=== PATIENT | female | born 1955 | race Hispanic/Latino ===

== ENCOUNTER 2019-08-28 13:11 | Inpatient (IN) | payer OTHER ==
--- OUTSIDE RECORDS SUMMARY | 2019-08-28 13:49 | XMS REPORT ---
:1955 [facility] Address [address] [place] [address] Care Team Providers Name Role Phone Unavailable Unavailable Unavailable Problems This patient has no known problems. Allergies, Adverse Reactions, Alerts This patient has no known allergies or adverse reactions. Medications This patient has no known medications.
--- OUTSIDE RECORDS SUMMARY | 2019-08-28 13:50 | XMS REPORT ---
:1955 Author Organization [employer] Care Team Providers Name Role Phone Cruz Rik Provider Role Unavailable Allergies, Adverse Reactions, Alerts Substance Reaction Event Type N.K.D.A. Info Not Available Non Drug Allergy Problems Problem Type Condition Code Onset Dates Condition Status Assessment PAD (peripheral artery disease) I73.9 Active Assessment HTN, goal below 130/80 I10 Active Assessment Mixed hyperlipidemia E78.2 Active Assessment Former heavy tobacco smoker Z87.891 Active Assessment Elevated uric acid in blood E79.0 Active Assessment Type 2 diabetes mellitus 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 Assessment Proteinuria, unspecified R80.9 Active Problem Type 2 diabetes mellitus with E11.51 Active diabetic peripheral angiopathy without gangrene, without long-term current use of insulin Problem HTN, goal below 130/80 I10 Active Problem Type 2 diabetes mellitus 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 Assessment Type 2 diabetes mellitus with E11.51 Active diabetic peripheral angiopathy without gangrene, without long-term current use of insulin Problem PAD (peripheral artery disease) I73.9 Active Problem Mixed hyperlipidemia E78.2 Active Medications Medication Code Code Instructions Start End Status Dosage System Date Date Lisinopril [facility] 90045946432 5 MG Orally Active 1 tablet Once a day Aspir-Low [facility] 20490536525 81 MG Orally Active 1 tablet Once a day Fenoprofen [facility] 87998900381 200 MG Orally Active 2 capsules Calcium Three times a day Glyxambi [facility] 97732184859 10-5 MG Inactive TAKE 1 TABLET BY MOUTH IN THE MORNING Metformin HCl ND 14349731039 1000 MG Orally Active 1 tablet BID with a meal Vasculera [facility] [address]-71 - Orally Active as directed Glyxambi [facility] 31059180770 25mg/5mg By Apr 09Jun Active 1 Mouth Once in 2018 26, AM 2019 Clopidogrel ND 60975777769 75 MG Orally Active 1 tablet Bisulfate Once a day Atorvastatin [facility] 44421923816 40 MG Orally Active 1 tablet Calcium Once a day Results No Known Results Summary Purpose [employer] Submission
--- OUTSIDE RECORDS SUMMARY | 2019-08-28 13:50 | XMS REPORT ---
:1955 Author Organization [employer] Care Team Providers Name Role Phone Rik Arroyo Provider Role Unavailable Allergies, Adverse Reactions, Alerts Substance Reaction Event Type N.K.D.A. Info Not Available Non Drug Allergy Problems Problem Type Condition Code Onset Dates Condition Status Assessment PAD (peripheral artery disease) I73.9 Active Assessment HTN, goal below 130/80 I10 Active Assessment Mixed hyperlipidemia E78.2 Active Problem Type 2 diabetes mellitus with [...] I73.9 Active Problem Mixed hyperlipidemia E78.2 Active Assessment Former heavy tobacco smoker Z87.891 Active Assessment Elevated uric acid in blood E79.0 Active Assessment Type 2 diabetes mellitus 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 Assessment Elevated alkaline phosphatase level R74.8 Active Assessment Proteinuria, unspecified R80.9 Active Medications Medication Code Code Instructions Start End Status Dosage System Date Date Metformin HCl [facility] 63389491524 1000 MG Orally Active 1 tablet BID with a meal Glyxambi [facility] 63596981951 25-5 MG Orally September Active TAKE 1 Once a day , TABLET BY 2019 MOUTH EVERY MORNING Aspir-Low ND 62493722456 81 MG Orally Active 1 tablet Once a day Vasculera [facility] [address]-36 - Orally Active as directed Atorvastatin ND 88456132500 40 MG Orally Active 1 tablet Calcium Once a day Lisinopril ND 58202680444 10 MG Orally Active 1 tablet Once a day Clopidogrel ND 83544577442 75 MG Orally Active 1 tablet Bisulfate Once a day Results No Known Results Summary Purpose [employer]ClinicalWorks Submission
--- OUTSIDE RECORDS SUMMARY | 2019-08-28 13:50 | XMS REPORT ---
:1955 Author Organization [employer] Care Team Providers Name Role Phone ArroyoRik Provider Role Unavailable Allergies, Adverse Reactions, Alerts Substance Reaction Event Type N.K.D.A. Info Not Available Non Drug Allergy Problems Problem Type Condition Code Onset Dates Condition Status Assessment Upper respiratory tract infection, J06.9 Active unspecified type Problem Type 2 diabetes mellitus with E11.51 Active diabetic peripheral angiopathy without gangrene, without long-term current use of insulin Problem HTN, goal below 130/80 I10 Active Problem Type 2 diabetes mellitus 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 Assessment Acute non-recurrent maxillary J01.00 Active sinusitis Problem PAD (peripheral artery disease) I73.9 Active Problem Mixed hyperlipidemia E78.2 Active Medications Medication Code Code Instructions Start End Status Dosage System Date Date Metformin HCl [facility] 84693408506 1000 MG Orally Active 1 tablet BID with a meal Aspir-Low [facility] 30247071371 81 MG Orally Active 1 tablet Once a day Amoxicillin-Pot [facility] 33439876739 875-125 MG Apr 30, May 10, Active 1 tablet Clavulanate Orally every 12 2019 2019 hrs Atorvastatin ND 13649816418 40 MG Orally Active 1 tablet Calcium Once a day Fenoprofen [facility] 04433426287 200 MG Orally Active 2 capsules Calcium Three times a day Clopidogrel [facility] 19165953930 75 MG Orally Active 1 tablet Bisulfate Once a day Vasculera [facility] [address]-98 - Orally Active as directed Glyxambi [facility] 85043860411 25mg/5mg By Apr 09, Jul 08, Active 1 Mouth Once in 2018 2020 AM Lisinopril [facility] 19857573896 5 MG Orally Active 1 tablet Once a day Results No Known Results Summary Purpose eClinicalWorks Submission
[2019-08-28 14:34] VITALS: BMI 26.2
[2019-08-28] MEDS ORDERED: ONDANSETRON 4 MG/2 ML VIAL IV PRN (15:28)
[2019-08-28] MEDS ORDERED: ACETAMINOPHEN 500 MG TAB PO PRN (15:28)
[2019-08-28] MEDS ORDERED: VANCOMYCIN 1.75 GM in NA CHLORIDE 0.9% 500 ML IVPB ONE (16:00)
[2019-08-28 16:17] LABS: Absolute Lymphocytes (CBC) 1.4 K/uL (0.7-4.9); Hematocrit 36.7 % (36.0-45.0); Lymphocytes % 17.6 % (15.3-44.8); MPV 8.5 fL (7.6-11.3); RBC Red Blood Cell Count 4.32 M/uL (3.86-4.86)
[2019-08-28 16:18] LABS: Protime INR 0.9
--- NOTE | 2019-08-28 16:18 | P.HP ---
Certification for Inpatient Patient admitted to: Inpatient With expected LOS: >2 Midnights Practitioner: I am a practitioner with admitting privileges, knowledge of patient current condition, hospital course, and medical plan of care. Services: Services provided to patient in accordance with Admission requirements found in Title 42 Section 412.3 of the Code of Federal Regulations Patient History Date of Service: 08/28/19 Reason for admission: Infected left big toe ulcer History of Present Illness: 64-year-old woman with a history diabetes mellitus, peripheral vascular disease , diabetic foot ulcers was referred from her data communications software consultant-Dr. Johns's office to be directly admitted for treatment for infected diabetic foot ulcer of the left big toe and osteomyelitis. Patient stated she completed oral antibiotics for her left great toe wound with no significant response. She took an x-ray which is showing osteomyelitis. She recently underwent a vascular procedure which from her description suggests an angioplasty of the vessels in her left leg. She is on aspirin and Plavix for peripheral vascular disease. She took all her medications this morning. Her blood sugar levels today is 150. Allergies No Known Allergies Allergy (Verified 06/26/17 19:52) Home Medications: Collagenase [Santyl Ointment*] 1 appl TOP DAILY #1 tube 07/01/17 Aspirin [Aspirin EC 81 MG] 1 tab PO DAILY 08/28/19 Atorvastatin Calcium 40 mg PO BEDTIME 08/28/19 Clopidogrel Bisulfate [Plavix*] 1 tab PO DAILY 08/28/19 Empagliflozin/Linagliptin [Glyxambi 25 mg-5 mg Tablet] 1 tab PO DAILY 08/28/19 Lisinopril [Zestril] 10 mg PO DAILY 08/28/19 Metformin HCl [Glucophage*] 1,000 mg PO BIDWM 08/28/19 Sulfamethoxazole/Trimethoprim [Sulfamethoxazole-Tmp Ds Tablet] 1 tab PO BID - Past Medical/Surgical History Has patient received pneumonia vaccine in the past: Yes Diabetic: Yes -: HTN -: DM -: C section -: tubal ligation -: Right foot surgery-2016 - Family History Mother -: Cancer Sister -: Cancer Notes: RA Brother -: Liver disease Father -: Cancer - Social History Smoking Status: Former smoker Alcohol use: No CD- Drugs: No Caffeine use: Yes Place of Residence: Home Review of Systems Other: Except as documented, all other systems reviewed and negative. Physical Examination - Vital Signs Temperature: 96.8 F Blood Pressure: 124/65 Pulse: 80 Respirations: 16 Pulse Ox (%): 100 - Physical Exam General: Alert, In no apparent distress, Oriented x3 HEENT: Mucous membr. moist/pink, Sclerae nonicteric Neck: Supple, JVD not distended Respiratory: Clear to auscultation bilaterally, Normal air movement Cardiovascular: No edema, Regular rate/rhythm, Normal S1 S2, No murmurs Capillary refill: <2 Seconds Gastrointestinal: Normal bowel sounds, Soft and benign, No tenderness Musculoskeletal: Other (Left great toe is swollen, purplish, small ulcer noted on the medial aspect of the toe. Right plantar ulcer adjacent to the 1st interdigital space, with necrotic eschar.) Neurological: Normal speech, Normal strength at 5/5 x4 extr, Cranial nerves 3- 12 intact Assessment and Plan - Problems (Diagnosis) (1) Diabetic ulcer of left great toe Current Visit: Yes Status: Acute (2) Osteomyelitis Current Visit: Yes Status: Acute (3) Diabetes mellitus type 2 in obese Current Visit: Yes Status: Acute (4) Peripheral vascular disease Current Visit: Yes Status: Acute (5) Diabetic ulcer of right foot Current Visit: No Status: Acute - Plan Admit to the medical floor. Check CBC, BMP Obtain Blood culture Start IV Rocephin and vancomycin Consult to podiatry. Patient will need debridement of the right foot plantar ulcer. Will also recommend bone biopsy from the left great toe for culture, to identify specific bacteria causing the osteomyelitis to guide a 6 weeks course of antibiotics therapy. Place PICC line for prolonged antibiotic therapy. Manage blood sugar with insulin sliding scale and Lantus insulin. Hold metformin while inpatient. - Advance Directives Does patient have a Living Will: Yes Does patient have a Durable POA for Healthcare: No
[2019-08-28] MEDS ORDERED: GLUCAGON 1 MG/VIAL IM PRN (16:26)
[2019-08-28] MEDS ORDERED: D50W 25 GM/50 ML SYRINGE/VIAL IV PRN (16:26)
[2019-08-28] MEDS: INSULIN -REGULAR HUMAN 50 UNIT/0.5 ML ML SQ SCH ×2 (16:30→20:35)
[2019-08-28 16:35] LABS: Albumin 2.8 g/dL (3.4-5.0); Bilirubin Total 0.1 mg/dL (0.2-1.0); Magnesium 2.4 mg/dL (1.8-2.4); Phosphorus 3.9 mg/dL (2.5-4.9); Potassium 5.3 mmol/L (3.5-5.1); Protein, Total 7.3 g/dL (6.4-8.2)
[2019-08-28] MEDS: NA CHLORIDE 0.9% 1,000 ML IV SCH (17:11)
[2019-08-28] MEDS: CEFTRIAXONE/SWI 1gm 1 GM/10 ML SYR IVP SCH (17:12)
--- NOTE | 2019-08-28 18:52 | P.CNS ---
Date of Consult: 08/28/19 Reason for Consult: cellulitis and osteomyelitis left hallux Chief Complaint: Infected left big toe ulcer Allergies No Known Allergies Allergy (Verified 06/26/17 19:52) Home Medications: Collagenase [Santyl Ointment*] 1 appl TOP DAILY #1 tube 07/01/17 Aspirin [Aspirin EC 81 MG] 1 tab PO DAILY 08/28/19 Atorvastatin Calcium 40 mg PO BEDTIME 08/28/19 Clopidogrel Bisulfate [Plavix*] 1 tab PO DAILY 08/28/19 Empagliflozin/Linagliptin [Glyxambi 25 mg-5 mg Tablet] 1 tab PO DAILY 08/28/19 Lisinopril [Zestril] 10 mg PO DAILY 08/28/19 Metformin HCl [Glucophage*] 1,000 mg PO BIDWM 08/28/19 Sulfamethoxazole/Trimethoprim [Sulfamethoxazole-Tmp Ds Tablet] 1 tab PO BID - Past Medical/Surgical History Diabetic: Yes -: HTN -: DM -: C section -: tubal ligation -: Right foot surgery-2016 - Family History Mother Medical History: Cancer Sister Medical History: Cancer Notes: RA Brother Medical History: Liver disease Father Medical History: Cancer - Social History Smoking Status: Current every day smoker Alcohol use: No CD- Drugs: No Caffeine use: Yes Place of Residence: Home Review of Systems 10-point ROS is otherwise unremarkable Physical Examination Temp Pulse Resp BP Pulse Ox 96.8 F 80 16 124/65 100 08/28/19 16:25 08/28/19 16:25 08/28/19 16:25 08/28/19 16:25 08/28/19 16:25 General: Alert, In no apparent distress, Oriented x3 Cardiovascular: Normal pulses Capillary refill: <2 Seconds (1/4 dp/pt pulse left hallux) Musculoskeletal: No clubbing, No swelling, No contractures, No erythema, No tenderness, No warmth Integumentary: Diabetic ulcer (ulceration medial aspect of left hallux with large fibrin, no purulence that probes to bone. Erythema and edema to left hallux to level of 1st mpj, no ascending cellulitis noted.) Neurological: Abnormal sensation (absent proprioceptive and protective sensations bilateral feet) Laboratory Data (last 24 hrs) 08/28/19 16:00: Sodium 133 L, Potassium 5.3 H, BUN 31 H, Creatinine 1.36 H, Glucose 125 H, Phosphorus 3.9, Magnesium 2.4, Total Bilirubin 0.1 L, AST 13 L, ALT 16, Alkaline Phosphatase 147 H 08/28/19 16:00: PT 10.7, INR 0.90 08/28/19 16:00: WBC 7.8, Hgb 12.0, Hct 36.7, Plt Count 449 H - Problems (1) Diabetic ulcer of left great toe Current Visit: Yes Status: Acute (2) Osteomyelitis Current Visit: Yes Status: Acute Conclusions/Impression: I agree with a course of iv antibiotics to attempt to salvage the left hallux. Patient has recently had revascularization to the left lower extremity and is noted to have digital hair growth. I discussed with the patient that she is a candidate for hyperbarics to aid in treating the wound and osteomyelitis. I will write orders for wound care and follow as needed.
[2019-08-28 19:38] LABS: Urine Appearance CLEAR; Urine Bilirubin NEGATIVE (NEG); Urine Blood NEGATIVE (NEG); Urine Color YELLOW; Urine Glucose 3+ (NEG); Urine Protein 2+ (NEG); Urine Urobilinogen 0.2 mg/dL (0.2-1.0)
[2019-08-28 19:51] LABS: Urine Microscopic Reflex ORDER UMIC
[2019-08-28 20:13] LABS: Urine Bacteria <20 /HPF (<20); Urine Culture Reflex Order NOT NEEDED; Urine RBC <5 /HPF (NONE SEEN)
[2019-08-28 20:14] LABS: Urine Trichomonas PRESENT (NONE SEEN)
[2019-08-28] MEDS: INSULIN GLARGINE 100 UNITS/ML SQ SCH (20:33)
[2019-08-28] MEDS: ATORVASTATIN 40 MG TAB PO SCH (20:33)
[2019-08-29] MEDS: NA CHLORIDE 0.9% 1,000 ML IV SCH ×3 (01:28→17:29)
[2019-08-29] MEDS ORDERED: VANCOMYCIN 1.25 GM in NA CHLORIDE 0.9% 250 ML IVPB SCH (04:00)
[2019-08-29] MEDS: INSULIN -REGULAR HUMAN 50 UNIT/0.5 ML ML SQ SCH ×4 (07:30→21:54)
[2019-08-29] MEDS: lisinopriL 10 MG TAB PO SCH (07:51)
[2019-08-29] MEDS: CEFTRIAXONE/SWI 1gm 1 GM/10 ML SYR IVP SCH (07:51)
[2019-08-29] MEDS: COLLAGENASE 30 GM OINTMENT TOP SCH (07:56)
[2019-08-29] MEDS ORDERED: LINAGLIPTIN PO SCH (09:00)
[2019-08-29] MEDS ORDERED: EMPAGLIFLOZIN PO SCH (09:00)
--- NOTE | 2019-08-29 10:38 | RAD REPORT ---
EXAM DESCRIPTION: RAD - Foot Left 3 View - 08/29/2019 10:14 am CLINICAL HISTORY: left great toe osteomyelitis COMPARISON: No comparisons FINDINGS: Bone loss changes are present involving the distal medial aspect of the first proximal pha lanx and base first distal phalanx. Bone loss changes also present in the head of the second proximal phalanx and probably in the base of the second middle phalanx. No acute fracture changes present. Prominent degenerative change present at the first MTP joint. No a ir in the soft tissues. Soft tissue swelling is present around the first and second toes. No foreign body. 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
[2019-08-29] MEDS ORDERED: metroNIDAZOLE 500 MG TABLET PO ONE (14:04)
[2019-08-29 14:40] LABS: Potassium 5.5 mmol/L (3.5-5.1)
[2019-08-29] MEDS: CEFEPIME/SWI 2gm 2 GM/20 ML SYR IVP SCH ×2 (15:49→21:54)
--- NOTE | 2019-08-29 17:11 | PN ---
Date of Progress Note: 08/29/2019 Subjective: Patient is seen and examined. Chart reviewed. Case discussed with RN. Patient states she feels okay. Had a bedside debridement done today by Dr. Johns. Medications List: Reviewed. Physical Examination: Vital Signs: Temperature 97, heart rate 74, blood pressure 121/60, respirations 18, O2 of 98% on flynn m air. General: Awake, alert, oriented x3. Ill-appearing female, in some mild distress. CV: S1, S2. Regular rate and rhythm. Peripheral pulses present. Respiratory: Moving air well bilaterally. No wheezing or stridor. Gastrointestinal: Abdomen is soft, nontender, nondistended. Positive bowel sounds. Extremities: No clubbing, cyanosis, or edema, except at the left foot. Neurologic: Nonfocal. Skin: Left first digit erythema, swelling, warm to touch. Wound is present. Laboratory Data: Blood glucose levels ranging between 159 and 99. Urine did show trichomonas. We w ill treat patient. Blood cultures and wound cultures pending at this time. Wound cultures growing 4 + gram-negative rods. Imaging Studies: Foot x-ray shows bone destructive osteomyelitis involving the first proximal and di stal phalanges and the second proximal and middle phalanges. Assessment: A 64-year-old female with: 1.Osteomyelitis of the first and second digit, left foot. We will continue with IV antibiotics and follow up on cultures. Appreciate Dr. Johns's input. We will consult Infectious Disease. X-ray rev iewed. 2.Diabetic ulcer of the left great toe. Initial culture growing out gram-negative rods. 3.Diabetes mellitus type 2 with hyperglycemia, non-insulin requiring. We will continue with sliding scale insulin. Monitor blood glucose levels. 4.Peripheral vascular disease. 5.Diabetic ulcer, right foot plantar aspect. 6.Deep vein thrombosis prophylaxis, addressed. Plan: 1.Obtain PICC line. We will need 6 weeks of IV antibiotics. ID consultation. 2.Trichomoniasis. We will treat with Flagyl. Patient instructed to treat her partner as well. SA/MODL Voice ID: [id number] Report ID: [id number]
[2019-08-29] MEDS ORDERED: CEFEPIME 2 GM in NA CHLORIDE 0.9% 100 ML IV SCH (21:00)
[2019-08-29] MEDS ORDERED: metroNIDAZOLE 500 MG TABLET PO SCH (21:00)
[2019-08-29] MEDS: ATORVASTATIN 40 MG TAB PO SCH (21:55)
[2019-08-29] MEDS: INSULIN GLARGINE 100 UNITS/ML SQ SCH (21:55)
[2019-08-30] MEDS ORDERED: LIDOCAINE 1% MPF 5 ML VIAL ONE (00:55)
[2019-08-30 03:34] LABS: Absolute Lymphocytes (CBC) 1.7 K/uL (0.7-4.9); Basophils % 1.2 % (0-1.3); Hematocrit 32.2 % (36.0-45.0); Lymphocytes % 25.4 % (15.3-44.8); MPV 8.8 fL (7.6-11.3); RBC Red Blood Cell Count 3.76 M/uL (3.86-4.86)
[2019-08-30 03:39] LABS: Potassium 5.1 mmol/L (3.5-5.1)
[2019-08-30] MEDS ORDERED: VANCOMYCIN 1.25 GM in NA CHLORIDE 0.9% 250 ML IVPB SCH (04:00)
[2019-08-30] MEDS: NA CHLORIDE 0.9% 1,000 ML IV SCH ×4 (04:39→23:12)
[2019-08-30] MEDS: INSULIN -REGULAR HUMAN 50 UNIT/0.5 ML ML SQ SCH ×4 (07:30→22:26)
[2019-08-30] MEDS: lisinopriL 10 MG TAB PO SCH (07:42)
[2019-08-30] MEDS: COLLAGENASE 30 GM OINTMENT TOP SCH (07:42)
[2019-08-30] MEDS: CEFEPIME/SWI 2gm 2 GM/20 ML SYR IVP SCH ×2 (07:42→21:30)
--- NOTE | 2019-08-30 08:36 | P.PN ---
Subjective Date of Service: 08/30/19 Chief Complaint: Infected left big toe ulcer Subjective: Improving, Doing well Review of Systems 10-point ROS is otherwise unremarkable Physical Examination - Vital Signs Temperature: 96.8 F Blood Pressure: 144/70 Pulse: 82 Respirations: 16 Pulse Ox (%): 96 - Physical Exam General: Alert, In no apparent distress, Oriented x3 Cardiovascular: No edema, Normal pulses Capillary refill: <2 Seconds Musculoskeletal: No clubbing, No swelling, No contractures, No erythema, No tenderness, No warmth Integumentary: Diabetic ulcer (Wound medial aspect of left hallux has decreased fibrin, slight decrease in periwound erythema and edema, no purulence noted. Hyperkeratosis noted plantar right foot with no open wound or drainage) Neurological: Abnormal sensation - Studies Laboratory Data (last 24 hrs) 08/30/19 03:09: Sodium 139, Potassium 5.1, BUN 26 H, Creatinine 0.91, Glucose 138 H 08/30/19 03:09: WBC 6.8, Hgb 10.6 L, Hct 32.2 L, Plt Count 342 D 08/29/19 13:50: Sodium 135 L, Potassium 5.5 H, BUN 27 H, Creatinine 1.26, Glucose 132 H Microbiology Data (last 24 hrs): 08/28/19 15:20 Wound - Left Toe Gram Stain - Final Assessment And Plan - Current Problems (Diagnosis) (1) Diabetic ulcer of left great toe Current Visit: Yes Status: Acute (2) Osteomyelitis Current Visit: Yes Status: Acute Qualifiers: Osteomyelitis type: other acute Osteomyelitis location: foot Laterality: left Qualified Code(s): M86.172 - Other acute osteomyelitis, left ankle and foot - Plan Continue packing wound bid with saline moistened gauze. Will d/c patient home on current iv antibiotics and tailor the antibiotics when bone culture is finalized. Patient to follow up in wound care 09/03/19. Will look into hyperbarics for the patient to potentially aid in healing the wound and treating the osteomyelitis Discharge Plan: Home Plan to discharge in: Unknown
--- NOTE | 2019-08-30 11:58 | RAD REPORT ---
EXAM DESCRIPTION: RAD - Chest Single View - 08/29/2019 11:45 pm CLINICAL HISTORY: PICC placement COMPARISON: None. TECHNIQUE: XR CHEST 1 VIEW 08/29/2019 11:07 PM CDT FINDINGS: Cardiac silhouette is normal in size. Lungs are clear without consolidation, atelectasis, mass or edema. There is no pleural effusion. There is no pneumothorax. There are no acute osseous fin dings. Right PICC line tip is in the right brachiocephalic vein. IMPRESSION: Right PICC line placement. Electronically signed by: Alejandro Ramos MD 08/29/2019 11:35 PM CDT Due to temporary technical issues with the PACS/Fluency reporting system, reports are being signed by the in house radiologist as a courtesy to ensure prompt reporting. The interpreting radiologist is f ully responsible for the content of the report.
--- NOTE | 2019-08-30 11:59 | RAD REPORT ---
EXAM DESCRIPTION: RAD - Chest Single View - 08/30/2019 2:16 am CLINICAL HISTORY: Repositioned PICC line. COMPARISON: 08/29/2019 TECHNIQUE: AP Chest. FINDINGS: Right subclavian PICC line has been advanced. Tip is in the mid aspect of the superior sacha a cava. No pneumothorax. Heart is normal in size. Normal cardiomediastinal contours. Clear lungs and pleural spaces. IMPRESSION: 1. Right subclavian PICC line tip is in the mid aspect of the superior vena cava. No com plicating finding. Electronically signed by: Radha Moon DO 08/30/2019 2:04 AM CDT Due to temporary technical issues with the PACS/Fluency reporting system, reports are being signed by the in house radiologist as a courtesy to ensure prompt reporting. The interpreting radiologist is f ully responsible for the content of the report.
--- NOTE | 2019-08-30 14:09 | DS ---
Date of service 08/30/2019 Consultants: Dr. Johns with Podiatry. Procedure: Bedside bone biopsy. Admitting Diagnoses: 1. Diabetic ulcer of the left great toe. 2. Osteomyelitis of the first and second toes and left foot. 3. Diabetes mellitus type 2 with hyperglycemia. 4. Peripheral vascular disease. 5. Diabetic ulcer of the right foot. Discharge Diagnoses: 1. Osteomyelitis of the first and second digit, left foot. 2. Diabetic ulcer of the left great toe. 3. Diabetes mellitus type 2 with hyperglycemia. 4. Peripheral vascular disease. 5. Trichomoniasis, treated with Flagyl. Patient instructed to have her partner treated. 6. Diabetic ulcer, right foot plantar aspect. Hospital Course: Patient is a 64-year-old female with past medical history of diabetes, peripheral vascular disease, diabetic foot ulcers, comes in from Dr. Johns's office for infected diabetic foot ulcer of the big toe. X-ray showed osteomyelitis. Bone biopsy was obtained. She was started on broad-spectrum IV antibiotics. Her blood cultures did not show any growth to date. Her wound culture initially is growing out Morganella. The bone biopsy wound culture is pending at this time, but growing out 4+ gram-negative rods. PICC line was placed. Patient did well with IV antibiotics. She did have some electrolyte abnormalities, which were corrected. Her white blood cell count remained stable. There was no signs of sepsis. She was afebrile. Her urine did show trichomoniasis, which was treated with Flagyl 2 g dose. She was instructed to have her partner treated. Otherwise, she will get reinfected. Patient to be set up with IV antibiotics at home. Patient has family member who is willing to help with the IV infusions. Patient then will be discharged home once IV antibiotics have been set up through home health agency. Followup: Follow up with primary care physician in 2 to 3 days. Follow up with online banking specialist, Dr. Johns on 09/03/2019 and to have hyperbarics initiated. Follow up with Infectious Disease, Dr. Rojas in 2 weeks. Return to ER for worsening condition. Diet: Diabetic. Activity: As tolerated. Physical Examination: General: Awake, alert, oriented x3. No acute distress. CV: S1, S2. Respiratory: Moving air well bilaterally. Abdomen: Soft, nontender, nondistended. Positive bowel sounds. Extremities: No clubbing, cyanosis. Patient has minimal edema of the left foot. Neurologic: Nonfocal. Skin: Erythema of the left foot and some edema. Warm to touch on the dorsal aspect. Diabetic foot wounds on the left and right foot. Time Spent: Total time spent discharging patient was 39 minutes. /DEREK Voice ID: [id number] Report ID: [id number] JOSE MANUEL
[2019-08-30] MEDS: INSULIN GLARGINE 100 UNITS/ML SQ SCH (21:30)
[2019-08-30] MEDS: ATORVASTATIN 40 MG TAB PO SCH (21:30)
[2019-08-31] MEDS ORDERED: VANCOMYCIN 1.25 GM in NA CHLORIDE 0.9% 250 ML IVPB SCH (06:00)
[2019-08-31 06:05] LABS: Absolute Lymphocytes (CBC) 1.9 K/uL (0.7-4.9); Basophils % 1.1 % (0-1.3); Hematocrit 30.6 % (36.0-45.0); Lymphocytes % 31.3 % (15.3-44.8); MPV 8.6 fL (7.6-11.3); RBC Red Blood Cell Count 3.56 M/uL (3.86-4.86)
[2019-08-31 06:42] LABS: BUN Blood Urea Nitrogen 22 mg/dL (7-18); Bicarbonate 19 mmol/L (21-32); Glucose Level 105 mg/dL (74-106); Potassium 4.3 mmol/L (3.5-5.1); Sodium Level 142 mmol/L (136-145)
[2019-08-31] MEDS: INSULIN -REGULAR HUMAN 50 UNIT/0.5 ML ML SQ SCH ×2 (07:30→11:30)
[2019-08-31 09:01] VITALS: O2SAT 96
[2019-08-31] MEDS: lisinopriL 10 MG TAB PO SCH (10:43)
[2019-08-31] MEDS: CEFEPIME/SWI 2gm 2 GM/20 ML SYR IVP SCH (10:44)
--- NOTE | 2019-08-31 12:20 | CON ---
History Of Present Illness: Patient is a 64-year-old female. I was consulted for the osteomyelitis of left big toe. Patient has significant history of diabetes mellitus for 2 years and hypertension. Also, has peripheral arterial disease and neuropathy as patient has no pain in her feet. Recently, she obtained new shoes for work and that started her to have blister, which turning to an ulcer and s he was seen by podiatry team, who recommended her to be admitted for IV antibiotics. Patient is curr ently on IV antibiotic and feels much better today. Her swelling has gone down as she is keeping her leg elevated. Past Medical History: Hypertension, diabetes mellitus, , tubal ligation, right foot surgery , revascularization, and stent placement. Family History: Cancer. Social History: Former smoker. No alcohol. Medications: Cefepime and vancomycin. See MAR for other medications. Allergies: NO KNOWN DRUG ALLERGIES. Review of Systems: 10-point review was performed. Physical Examination: General: This is a 64-year-old female, lying in bed, family by the bedside, not in any acute distres s. Vital Signs: Temperature 96.7, pulse 70, respirations 18, blood pressure 170/79. HEENT: Unremarkable. Neck: Supple. Lungs: Clear to auscultation. Heart: S1, S2. Regular. Abdomen: Soft, nontender. Bowel sounds present. EXTREMITIES: Left foot with swelling of the big toe with open wound and erythematous changes noted a ll the way up to mid metatarsal. Laboratory Data: WBC 6, hemoglobin 9.9, platelets are 324. Chemistry shows sodium 142, potassium 4. 3, chloride 116, bicarb 29, BUN 22, creatinine 0.6, glucose 105. Micro data shows Morganella morgani i and Strep agalactiae group B from the left big toe wound cultures; sensitive to Levaquin, vancomyci n, and penicillin for strep group B; and cefepime sensitivity positive for Morganella morganii. Assessment And Plan: Osteomyelitis and diabetic foot ulcer in a 64-year-old female involving the 1st proximal and distal phalanx, also bony destructive changes noted in 2nd proximal and middle phalanx. Patient is currently being treated with vancomycin and cefepime. We will also recommend to start p atient on probiotic. Also recommend to start applying Iodosorb to the wound site. We will continue antibiotic for a total of 6 weeks. We will follow up CBC, BMP on a twice a week basis while patient is on antibiotic. We will follow patient as needed. Thank you for consult. MARAL Voice ID: [id number] Report ID: [id number]
[2019-08-31] MEDS ORDERED: HYDRALAZINE HCL 20 MG/ML VIAL IV PRN (12:23)
--- NOTE | 2019-08-31 13:23 | PN ---
Date of Progress Note: 08/31/2019 Subjective: Patient seen and examined. Chart reviewed and case discussed with RN and Dr. Rojas. Nissa webb is doing well. No acute events overnight. States erythema of her foot is better. Medications List: Reviewed. Physical Examination: Vital Signs: Temperature 96.7, heart rate 70, blood pressure 170/79, respirations 18, O2 96% on room air. General: Awake, alert, oriented x3, not in any acute distress. CV: S1, S2. Regular rate and rhythm. Peripheral pulses present. Respiratory: Moving air well bilaterally. No wheezing or stridor. Gastrointestinal: Abdomen is soft, nontender, nondistended. Positive bowel sounds. Extremities: No clubbing, cyanosis, or edema. Neurologic: Nonfocal. Skin: Patient has minimal erythema of the left dorsum of the foot, mainly around the first toe, diab etic wound is present. Patient also has diabetic wound on the plantar aspect of the right foot. Laboratory Data: Sodium 142, potassium 4.3, chloride 116, CO2 of 19, BUN 22, creatinine 0.6, glucose 105, calcium 7.4. WBC 6, H and H 9.9 and 30.6, platelets 324, neutrophils 55%. Blood cultures, no growth to date. Wound cultures growing out Morganella and Streptococcus sensitive to cefepime and va ncomycin respectively. Wound culture from surgical biopsies still pending, growing out gram-negative rods. Assessment: A 64-year-old female with: 1.Osteomyelitis of the first and second digit, left foot. Continue with long-term IV antibiotics fo r 6 weeks with vancomycin and cefepime secondary to Morganella and Streptococcus. 2.Diabetic ulcer of the left great toe. 3.Diabetes mellitus type 2 with hyperglycemia, non-insulin requiring. We will continue with sliding scale insulin. Monitor blood glucose levels. 4.Peripheral vascular disease. 5.Trichomoniasis, treated with Flagyl. 6.Diabetic ulcer, right foot, plantar aspect. 7.Essential hypertension, not well controlled. We will increase lisinopril dose. Plan: Discharge home with IV antibiotics once everything is set up. SA/MODL Voice ID: [id number] Report ID: [id number]
[2019-08-31 13:48] VITALS: TEMP 97
[2019-08-31 13:53] VITALS: BP 194/97
[2019-08-31] MEDS: COLLAGENASE 30 GM OINTMENT TOP SCH (14:02)
[2019-08-31] MEDS ORDERED: LACTOBACILLUS/ACIDOPHILUS TAB PO SCH (21:00)
[2019-09-01] MEDS ORDERED: lisinopriL 10 MG TAB PO SCH (09:00)
[2019-09-01] MEDS ORDERED: lisinopriL 20 MG TAB PO SCH (09:00)
== END 2019-08-31 15:29 | disposition home health service (06) | DRG 638 ==
LOC: 4TH 13:46
PROVIDERS: ADMIT Internal Medicine; ATTEND Internal Medicine
PROC: 02HV33Z Insertion of Infusion Device into Superior Vena Cava, Percutaneous Approach (ICD-10-PCS; principal; 2019-08-29)
DX: E11.69 Type 2 diabetes mellitus with other specified complication (principal); M86.172 Other acute osteomyelitis, left ankle and foot; E11.65 Type 2 diabetes mellitus with hyperglycemia; B95.5 Unspecified streptococcus as the cause of diseases classified elsewhere; B96.89 Other specified bacterial agents as the cause of diseases classified elsewhere; E11.621 Type 2 diabetes mellitus with foot ulcer; L97.529 Non-pressure chronic ulcer of other part of left foot with unspecified severity; I73.9 Peripheral vascular disease, unspecified; L97.519 Non-pressure chronic ulcer of other part of right foot with unspecified severity; A59.8 Trichomoniasis of other sites; I10 Essential (primary) hypertension
CPT/HCPCS: 36415; 36569; 71045; 80048; 80053; 80202; 81003; 81015; 82947; 83605; 83735; 84100; 85025; 85610; 87040; 87070; 87077; 87186; 87205; 94760; J0360; J0692; J0696; J1815; J3590; J7030; J7040

== ENCOUNTER 2022-07-31 09:57 | Emergency (ER) | payer OTHER ==
--- OUTSIDE RECORDS SUMMARY | 2022-07-31 10:01 | XMS REPORT | Continuity of Care Document ---
:1955 Author Organization [facility] t Address [address] [place] [address] Care Team Providers Name Role Phone Rik Arroyo Attending Clinician Unavailable Amanda Murdock Attending Clinician Unavailable Doctor Unassigned, [place] Attending Clinician Unavailable Amanda Murdock Admitting Clinician Unavailable Payers Payer Name Policy Type Policy Number Effective Date Expiration Date S [facility] [id number] (MEDICARE 00:00:00 REPLACEMENT HMO) [facility] [id number] 2017 00:00:00 Problems Condition Condition Condition Status Onset Resolution Last Treating Co mments Source Name Details Category Date Date Treatment Clinician Date 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 09-11 ity of mellitus mellitus 00:00: [place] without without 00 Medical complicati complicati Leonid montemayor on, on, without without long-term long-term current current use of use of insulin insulin Chronic Chronic Problem Common kidney kidney Spirit disease disease, - [facility] stage [address] (disorder) unspecifie [facility] [id number] Anemia in Problem Com mon chronic Spirit kidney - CHI disease [facility] [id number] HTN, goal Problem Comm on below Spirit 130/80 - CHI [facility] [id number] Type 2 Problem Common diabetes Spirit mellitus - CHI with diabetic [facility] peripheral Medica l angiopathy Center without gangrene, without long-term current use of insulin [id number] Type 2 [place] [address] diabetes Spirit mellitus - CHI with other diabetic [facility] kidney Medical complicati Center on [id number] Type 2 Problem Commo n 05 diabetes Spirit mellitus - CHI with diabetic [facility] chronic Medical kidney Center disease [id number] Mixed Problem Common hyperlipid Spirit emia - CHI [facility] [id number] PAD Problem Common (periphera Spirit l artery - CHI disease) [facility] [id number] 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 of - CHI other part St of right [facility] foot with Medical fat layer Center exposed [id number] Type 2 Problem Commo n [id number] diabetes Spirit mellitus - CHI with foot ulcer [facility] [id number] Hypocalcem Problem Comm on ia Spirit - CH[facility] [id number] Vitamin D Problem Comm on deficiency Spirit disease - [facility] Allergies, Adverse Reactions, Alerts Allergy Allergy Status Severity Reaction(s) Onset Inactive Treating Comm ents Source Name Type Date Date Clinician No Known DA Active [facility] All[facility]ie 07-19 [facility] 00:00: d 00 [facility] NO KNOWN Drug Active [facility] ALLERGIE [facility] Social History Social Habit Start Date Stop Date Quantity Comments Source History of Tobacco Common Spirit - CHI Use [facility] Sex Assigned At Common Sp toro - CHI [facility] Cigarettes smoked 2018-02-23 2018-02-23 [facility] current (pack per 00:00:00 00:00:00 Medical Branch day) - Reported Cigarette pack-years 2018-02-23 2018-02-23 [facility] 00:00:00 00:00:00 Medical Branch Alcohol intake 2018-02-23 2018-02-23 [facility] 00:00:00 00:00:00 Medical [place] Smoking Status Start Date Stop Date Source Former Smoker 2022-05-02 00:00:00 2022-05-02 00:00:00 Common S pirit - CHI [facility] Medications Ordered Filled Start Stop Current Ordering Indication Dosage Frequency Signature Comments Components Source Medication Medication Date Date Medication? Clinician (SIG) Name Name glipiZIDE glipiZIDE No 1{table QD glipiZIDE ER 5 MG ER 5 MG 8-23 t_with_ ER 5 MG 00:00: food} 00 Amlodipine Amlodipine Yes Rik 1 tablet Common Besylate Besylate 5-14 [place] Spirit 00:00: - CHI 00 [facility] Zestoretic Zestoretic Yes Rik 1 tablet Common 5- Arroyo Spirit 00:00: - CHI 00 [facility] 2018-06 No 40mg Common (Triamcinol (Triamcinol 1-18 S pirit one) one) 00:00: - CHI [facility] 2018-06 No 40mg Common (Triamcinol (Triamcinol 1-18 S pirit one) one) 00:00: - CHI [facility] 2018-06 No 40mg Common (Triamcinol (Triamcinol 1-18 S pirit one) one) 00:00: - [facility]I [facility] 2018- No 40mg Common (Triamcinol (Triamcinol 1-18 S pirit one) one) 00:00: - CHI [facility] 2018- No 40mg Common (Triamcinol (Triamcinol 1-18 S pirit one) one) 00:00: - [facility]I [facility] 2018- No 40mg Common (Triamcinol (Triamcinol 1-18 S pirit one) one) 00:00: - CHI [facility] 2018- No 40mg Common (Triamcinol (Triamcinol 1-18 S pirit one) one) 00:00: - [facility] 2018- No 40mg Common (Triamcinol (Triamcinol 1-18 S pirit one) one) 00:00: - [facility] METFORMIN 2018- Yes [id number] TAKE 1 U nivers 1,000 mg 0-07 TABLET BY ity of tablet 00:00: MOUTH [place] TWICE A Medical DAY WITH Branch MEALS METFORMIN 2019- Yes [id number] TAKE 1 U nivers 1,000 mg 0-07 TABLET BY ity of tablet 00:00: MOUTH [place] TWICE A Medical DAY WITH Branch MEALS METFORMIN 2019- Yes [id number] TAKE 1 U nivers 1,000 mg 0-07 TABLET BY ity of tablet 00:00: MOUTH [place] 00 TWICE A Medical DAY WITH Branch MEALS clopidogrel 2018- Yes 75mg Take 75 mg Univers 75 mg 1-30 by mouth ity of tablet 13:14: daily. [address] [id number]/ Yes Take by Uni vers folic 1-30 mouth. ity of ac/NADH/coQ 13:14: [place] [address] ([address]) [place] aspirin 81 Yes 81mg Take 81 mg U nivers mg chewable 1-30 by mouth ity of tablet 13:14: daily. [address] clopidogrel 2018- Yes 75mg Take 75 mg Univers 75 mg 1-30 by mouth ity of tablet 13:14: daily. [address] [email or web address]/ Yes Take by Uni vers folic 1-30 mouth. ity of ac/NADH/coQ 13:14: [place] [address] ([address]) [place] aspirin 81 Yes 81mg Take 81 mg U nivers mg chewable 1-30 by mouth ity of tablet 13:14: daily. [address] clopidogrel 2018-0 Yes 75mg Take 75 mg Univers 75 mg 1-30 by mouth ity of tablet 13:14: daily. [address] [email or web address]/ Yes Take by Uni vers folic 1-30 mouth. ity of ac/NADH/coQ 13:14: [place] [address] ([address]) [place] aspirin 81 2019- Yes 81mg Take 81 mg U nivers mg chewable 1-30 by mouth ity of tablet 13:14: daily. [address] atorvastati 2019-0 Yes [id number] 60mg Take 1.5 Univers n 40 mg 1-30 tablets by ity of tablet 00:00: mouth at [place] 00 bedtime. [facility] atorvastati 2019- Yes [id number] 60mg Take 1.5 Univers n 40 mg 1-30 tablets by ity of tablet 00:00: mouth at [place] [address] bedtime. Medical Branch atorvastati Yes [id number] 60mg Take 1.5 Univers n 40 mg 1-30 tablets by ity of tablet 00:00: mouth at [place] [address] bedtime. Medical Branch VASCULERA Yes TAKE 1 Univer s 630 mg Tab 1-16 TABLET BY ity of 00:00: MOUTH ONCE [place] A DAY Medical Branch VASCULERA Yes TAKE 1 Univer s 630 mg Tab 1-16 TABLET BY ity of 00:00: MOUTH ONCE [place] A Medical Branch VASCULERA Yes TAKE 1 Univer s 630 mg Tab 1-16 TABLET BY ity of 00:00: MOUTH ONCE [place] Medical Branch Glyxambi Glyxambi Yes Rik TAKE 1 Com mon Arroyo TABLET BY Spirit MOUTH - CHI EVERY St MORNING [facility] Clopidogrel Clopidogrel Yes Rik 1 tablet Common Bisulfate Bisulfate Arroyo Spir [facility] Vasculera Vasculera Yes Rik as Com mon Arroyo directed [facility] Metformin Metformin Yes Rik 1 tablet Common HCl HCl Arroyo with a [facility] meal [facility] Atorvastati Atorvastati Yes Rik 1 tablet Common n Calcium n Calcium Arroyo Spir [facility] Aspir-Low Aspir-Low Yes Rik 1 tablet Common Arroyo [facility] Lisinopril- Lisinopril- Yes Rik 1 tablet Common Hydrochloro Hydrochloro Arroyo [facility] thiazide thiazide [facility] Amlodipine Amlodipine Yes Rik 1 tablet Common Besylate Besylate Arroyo [facility] Metformin Metformin Yes Rik TAKE 1 C ommon HCl HCl Arroyo TABLET BY Spirit MOUTH - CHI TWICE A St DAY WITH A [facility] Glyxambi Glyxambi No Glyxambi 25-5 MG 25-5 MG 25-5 MG amLODIPine amLODIPine No 1{table QD amLODIPine Besylate 10 Besylate 10 t} Besylate MG MG 10 MG Clopidogrel Clopidogrel No 1{table QD Clopidogre Bisulfate Bisulfate t} l 75 MG 75 MG Bisulfate 75 MG Losartan Losartan No Losartan Potassium Potassium Potassium 100 MG 100 MG 100 MG Glyxambi Glyxambi No QD Glyxambi 25-5 MG 25-5 MG 25-5 MG Glyxambi Glyxambi No Glyxambi 25-5 MG 25-5 MG 25-5 MG Clopidogrel Clopidogrel No 1{table QD Clopidogre Bisulfate Bisulfate t} l 75 MG 75 MG Bisulfate 75 MG Aspir-Low Aspir-Low No 1{table QD Aspir-Low 81 MG 81 MG t} 81 MG metFORMIN metFORMIN No metFORMIN HCl 1000 MG HCl 1000 MG HCl 1000 MG Losartan Losartan No Losartan Potassium Potassium Potassium 100 MG 100 MG 100 MG Losartan Losartan No 1{table QD Losartan Potassium Potassium t} Potassium 100 MG 100 MG 100 MG Lisinopril- Lisinopril- No Lisinopril hydroCHLORO hydroCHLORO -hydroCHLO thiazide thiazide ROthiazide 20-25 MG 20-25 MG 20-25 MG Clopidogrel Clopidogrel No Clopidogre Bisulfate Bisulfate l 75 MG 75 MG Bisulfate 75 MG Vitamin D3 Vitamin D3 No 1{capsu Vitamin D3 19875 UNIT 40250 UNIT le} 29676 UNIT amLODIPine amLODIPine No amLODIPine Besylate 10 Besylate 10 Besylate MG MG 10 MG amLODIPine amLODIPine No 1{table QD amLODIPine Besylate 10 Besylate 10 t} Besylate MG MG 10 MG Vasculera - Vasculera - No Vasculera - Carvedilol Carvedilol No 1{table BID Carvedilol 6.25 MG 6.25 MG t_with_ 6.25 MG food} Atorvastati Atorvastati No Atorvastat n Calcium n Calcium in Calcium 40 MG 40 MG 40 MG Glyxambi Glyxambi No QD Glyxambi 25-5 MG 25-5 MG 25-5 MG Glyxambi Glyxambi No Glyxambi 25-5 MG 25-5 MG 25-5 MG Clopidogrel Clopidogrel No 1{table QD Clopidogre Bisulfate Bisulfate t} l 75 MG 75 MG Bisulfate 75 MG Aspir-Low Aspir-Low No 1{table QD Aspir-Low 81 MG 81 MG t} 81 MG metFORMIN metFORMIN No metFORMIN HCl 1000 MG HCl 1000 MG HCl 1000 MG Losartan Losartan No Losartan Potassium Potassium Potassium 100 MG 100 MG 100 MG Losartan Losartan No 1{table QD Losartan Potassium Potassium t} Potassium 100 MG 100 MG 100 MG Lisinopril- Lisinopril- No Lisinopril hydroCHLORO hydroCHLORO -hydroCHLO thiazide thiazide ROthiazide 20-25 MG 20-25 MG 20-25 MG Clopidogrel Clopidogrel No Clopidogre Bisulfate Bisulfate l 75 MG 75 MG Bisulfate 75 MG Vitamin D3 Vitamin D3 No 1{capsu Vitamin D3 09957 UNIT 49672 UNIT le} 71544 UNIT amLODIPine amLODIPine No amLODIPine Besylate 10 Besylate 10 Besylate MG MG 10 MG amLODIPine amLODIPine No 1{table QD amLODIPine Besylate 10 Besylate 10 t} Besylate MG MG 10 MG Vasculera - Vasculera - No Vasculera - Carvedilol Carvedilol No 1{table BID Carvedilol 6.25 MG 6.25 MG t_with_ 6.25 MG food} Atorvastati Atorvastati No Atorvastat n Calcium n Calcium in Calcium 40 MG 40 MG 40 MG Vasculera - Vasculera - No Vasculera - Losartan Losartan No 1{table QD Losartan Potassium Potassium t} Potassium 100 MG 100 MG 100 MG Glyxambi Glyxambi No QD Glyxambi 25-5 MG 25-5 MG 25-5 MG Carvedilol Carvedilol No 1{table BID Carvedilol 6.25 MG 6.25 MG t_with_ 6.25 MG food} amLODIPine amLODIPine No 1{table QD amLODIPine Besylate 10 Besylate 10 t} Besylate MG MG 10 MG Atorvastati Atorvastati No 1{table QD Atorvastat n Calcium n Calcium t} in Calcium 40 MG 40 MG 40 MG amLODIPine amLODIPine No amLODIPine Besylate 10 Besylate 10 Besylate MG MG 10 MG Atorvastati Atorvastati No Atorvastat n Calcium n Calcium in Calcium 40 MG 40 MG 40 MG Clopidogrel Clopidogrel No 1{table QD Clopidogre Bisulfate Bisulfate t} l 75 MG 75 MG Bisulfate 75 MG Aspir-Low Aspir-Low No 1{table QD Aspir-Low 81 MG 81 MG t} 81 MG Clopidogrel Clopidogrel No Clopidogre Bisulfate Bisulfate l 75 MG 75 MG Bisulfate 75 MG Vitamin D3 Vitamin D3 No 1{capsu Vitamin D3 11663 UNIT 82515 UNIT le} 59919 UNIT Vitamin D2 Vitamin D2 No Vitamin D2 Losartan Losartan No Losartan Potassium Potassium Potassium 100 MG 100 MG 100 MG Losartan Losartan No Losartan Potassium Potassium Potassium 100 MG 100 MG 100 MG Aspir-Low Aspir-Low No 1{table QD Aspir-Low 81 MG 81 MG t} 81 MG Atorvastati Atorvastati No 1{table QD Atorvastat n Calcium n Calcium t} in Calcium 40 MG 40 MG 40 MG Vasculera - Vasculera - No Vasculera - amLODIPine amLODIPine No amLODIPine Besylate 10 Besylate 10 Besylate MG MG 10 MG Atorvastati Atorvastati No Atorvastat n Calcium n Calcium in Calcium 40 MG 40 MG 40 MG Vitamin D2 Vitamin D2 No Vitamin D2 Carvedilol Carvedilol No 1{table BID Carvedilol 6.25 MG 6.25 MG t_with_ 6.25 MG food} Vitamin D3 Vitamin D3 No 1{capsu Vitamin D3 95161 UNIT 94151 UNIT le} 80551 UNIT Clopidogrel Clopidogrel No Clopidogre Bisulfate Bisulfate l 75 MG 75 MG Bisulfate 75 MG Glyxambi Glyxambi No Glyxambi 25-5 MG 25-5 MG 25-5 MG Losartan Losartan No Losartan Potassium Potassium Potassium 100 MG 100 MG 100 MG Aspir-Low Aspir-Low No 1{table QD Aspir-Low 81 MG 81 MG t} 81 MG Atorvastati Atorvastati No 1{table QD Atorvastat n Calcium n Calcium t} in Calcium 40 MG 40 MG 40 MG Vasculera - Vasculera - No Vasculera - amLODIPine amLODIPine No amLODIPine Besylate 10 Besylate 10 Besylate MG MG 10 MG Atorvastati Atorvastati No Atorvastat n Calcium n Calcium in Calcium 40 MG 40 MG 40 MG Vitamin D2 Vitamin D2 No Vitamin D2 Carvedilol Carvedilol No 1{table BID Carvedilol 6.25 MG 6.25 MG t_with_ 6.25 MG food} Vitamin D3 Vitamin D3 No 1{capsu Vitamin D3 39708 UNIT 33877 UNIT le} 34670 UNIT Clopidogrel Clopidogrel No Clopidogre Bisulfate Bisulfate l 75 MG 75 MG Bisulfate 75 MG Glyxambi Glyxambi No Glyxambi 25-5 MG 25-5 MG 25-5 MG amLODIPine amLODIPine No amLODIPine Besylate 10 Besylate 10 Besylate MG MG 10 MG Glyxambi Glyxambi No Glyxambi 25-5 MG 25-5 MG 25-5 MG Losartan Losartan No 1{table QD Losartan Potassium Potassium t} Potassium 100 MG 100 MG 100 MG Aspir-Low Aspir-Low No 1{table QD Aspir-Low 81 MG 81 MG t} 81 MG Clopidogrel Clopidogrel No 1{table QD Clopidogre Bisulfate Bisulfate t} l 75 MG 75 MG Bisulfate 75 MG Vasculera - Vasculera - No Vasculera - Atorvastati Atorvastati No 1{table QD Atorvastat n Calcium n Calcium t} in Calcium 40 MG 40 MG 40 MG amLODIPine amLODIPine No 1{table QD amLODIPine Besylate 10 Besylate 10 t} Besylate MG MG 10 MG Vitamin D3 Vitamin D3 No 1{capsu Vitamin D3 76182 UNIT 31784 UNIT le} 07568 UNIT Losartan Losartan No Losartan Potassium Potassium Potassium 100 MG 100 MG 100 MG Atorvastati Atorvastati No Atorvastat n Calcium n Calcium in Calcium 40 MG 40 MG 40 MG Vitamin D2 Vitamin D2 No Vitamin D2 Carvedilol Carvedilol No 1{table BID Carvedilol 6.25 MG 6.25 MG t_with_ 6.25 MG food} Glyxambi Glyxambi No QD Glyxambi 25-5 MG 25-5 MG 25-5 MG Clopidogrel Clopidogrel No Clopidogre Bisulfate Bisulfate l 75 MG 75 MG Bisulfate 75 MG Carvedilol Carvedilol No 1{table BID Carvedilol 6.25 MG 6.25 MG t_with_ 6.25 MG food} Aspir-Low Aspir-Low No 1{table QD Aspir-Low 81 MG 81 MG t} 81 MG Atorvastati Atorvastati No 1{table QD Atorvastat n Calcium n Calcium t} in Calcium 40 MG 40 MG 40 MG Losartan Losartan No 1{table QD Losartan Potassium Potassium t} Potassium 100 MG 100 MG 100 MG Losartan Losartan No Losartan Potassium Potassium Potassium 100 MG 100 MG 100 MG Clopidogrel Clopidogrel No Clopidogre Bisulfate Bisulfate l 75 MG 75 MG Bisulfate 75 MG amLODIPine amLODIPine No 1{table QD amLODIPine Besylate 10 Besylate 10 t} Besylate MG MG 10 MG glipiZIDE glipiZIDE No glipiZIDE ER 5 MG ER 5 MG ER 5 MG glipiZIDE glipiZIDE No 1{table QD glipiZIDE ER 5 MG ER 5 MG t_with_ ER 5 MG food} Atorvastati Atorvastati No Atorvastat n Calcium n Calcium in Calcium 40 MG 40 MG 40 MG Vitamin D2 Vitamin D2 No Vitamin D2 Glyxambi Glyxambi No QD Glyxambi 25-5 MG 25-5 MG 25-5 MG Clopidogrel Clopidogrel No 1{table QD Clopidogre Bisulfate Bisulfate t} l 75 MG 75 MG Bisulfate 75 MG Vitamin D3 Vitamin D3 No 1{capsu Vitamin D3 43774 UNIT 28610 UNIT le} 74737 UNIT Glyxambi Glyxambi No Glyxambi 25-5 MG 25-5 MG 25-5 MG amLODIPine amLODIPine No amLODIPine Besylate 10 Besylate 10 Besylate MG MG 10 MG Vasculera - Vasculera - No Vasculera - metFORMIN metFORMIN No metFORMIN HCl 1000 MG HCl 1000 MG HCl 1000 MG Aspir-Low Aspir-Low No 1{table QD Aspir-Low 81 MG 81 MG t} 81 MG Vitamin D3 Vitamin D3 No 1{capsu Vitamin D3 88660 UNIT 59606 UNIT le} 20612 UNIT Losartan Losartan No 1{table QD Losartan Potassium Potassium t} Potassium 100 MG 100 MG 100 MG Glyxambi Glyxambi No QD Glyxambi 25-5 MG 25-5 MG 25-5 MG amLODIPine amLODIPine No 1{table QD amLODIPine Besylate 10 Besylate 10 t} Besylate MG MG 10 MG amLODIPine amLODIPine No amLODIPine Besylate 10 Besylate 10 Besylate MG MG 10 MG Clopidogrel Clopidogrel No Clopidogre Bisulfate Bisulfate l 75 MG 75 MG Bisulfate 75 MG Vasculera - Vasculera - No Vasculera - Lisinopril- Lisinopril- No Lisinopril hydroCHLORO hydroCHLORO -hydroCHLO thiazide thiazide ROthiazide 20-25 MG 20-25 MG 20-25 MG Clopidogrel Clopidogrel No 1{table QD Clopidogre Bisulfate Bisulfate t} l 75 MG 75 MG Bisulfate 75 MG Glyxambi Glyxambi No Glyxambi 25-5 MG 25-5 MG 25-5 MG Atorvastati Atorvastati No 1{table QD Atorvastat n Calcium n Calcium t} in Calcium 40 MG 40 MG 40 MG metFORMIN metFORMIN No 1{table BID metFORMIN HCl 1000 MG HCl 1000 MG t_with_ HCl 1000 a_meal} MG Losartan Losartan No Losartan Potassium Potassium Potassium 100 MG 100 MG 100 MG metFORMIN metFORMIN No metFORMIN HCl 1000 MG HCl 1000 MG HCl 1000 MG Clopidogrel Clopidogrel No Clopidogre Bisulfate Bisulfate l 75 MG 75 MG Bisulfate 75 MG Vasculera - Vasculera - No Vasculera - Glyxambi Glyxambi No QD Glyxambi 25-5 MG 25-5 MG 25-5 MG Vitamin D3 Vitamin D3 No 1{capsu Vitamin D3 44063 UNIT 39519 UNIT le} 63124 UNIT Losartan Losartan No 1{table QD Losartan Potassium Potassium t} Potassium 100 MG 100 MG 100 MG amLODIPine amLODIPine No amLODIPine Besylate 10 Besylate 10 Besylate MG MG 10 MG Atorvastati Atorvastati No Atorvastat n Calcium n Calcium in Calcium 40 MG 40 MG 40 MG metFORMIN metFORMIN No 1{table BID metFORMIN HCl 1000 MG HCl 1000 MG t_with_ HCl 1000 a_meal} MG Lisinopril- Lisinopril- No Lisinopril hydroCHLORO hydroCHLORO -hydroCHLO thiazide thiazide ROthiazide 20-25 MG 20-25 MG 20-25 MG Aspir-Low Aspir-Low No 1{table QD Aspir-Low 81 MG 81 MG t} 81 MG Immunizations Ordered Filled Immunization Date Status Comments Sour e Immunization Name Name PNEUMAVAX 23 PNEUMAVAX 2018-11-13 Completed Common Spi rit - 16:04:00 [facility] PNEUMAVAX 23 PNEUMAVAX 2018-11-13 Completed Common Spi rit - 16:04:00 [facility] PNEUMAVAX 23 PNEUMAVAX 2018-11-13 Completed Common Spi rit - 16:04:00 [facility] PNEUMAVAX 23 PNEUMAVAX 2018-11-13 Completed Common Spi rit - 16:04:00 [facility] PNEUMAVAX 23 PNEUMAVAX 2018-11-13 Completed Common Spi rit - 16:04:00 [facility] PNEUMAVAX 23 PNEUMAVAX 2018-11-13 Completed Common Spi rit - 16:04:00 [facility] PNEUMAVAX 23 PNEUMAVAX 2018-11-13 Completed Common Spi rit - 16:04:00 [facility] PNEUMAVAX 23 PNEUMAVAX 2018-11-13 Completed Common Spi rit - 16:04:00 [facility] PNEUMAVAX 23 PNEUMAVAX 2018-11-13 Completed Common Spi rit - 16:04:00 [facility] Td 2013-07-12 Completed [facility] 00:00:00 [facility] Td 2013-07-12 Completed [facility] 00:00:00 [facility] Td 2013-07-12 Completed University 00:00:00 [facility] Vital Signs Vital Name Observation Time Observation Value Comments Source height 2022-05-05 10:30:00 63 [in_i] Common [facility] weight 2022-05-05 10:30:00 162.9 [lb_av] [facility] temperature 2022-05-05 10:30:00 96.5 [degF] Common [facility] bmi 2022-05-05 10:30:00 28.85 kg/m2 [facility] oximetry 2022-05-05 10:30:00 99 % Common [facility] respiratory rate 2022-05-05 10:30:00 18 /min Comm on [facility] blood pressure 2022-05-05 10:30:00 128 mm[Hg] Common [facility] - systolic [facility] blood pressure 2022-05-05 10:30:00 65 mm[Hg] Common [facility] - diastolic [facility] height 2022-02-02 10:10:00 63 [in_i] Common [facility] weight 2022-02-02 10:10:00 161.2 [lb_av] [facility] temperature 2022-02-02 10:10:00 97.4 [degF] Common [facility] bmi 2022-02-02 10:10:00 28.55 kg/m2 [facility] oximetry 2022-02-02 10:10:00 98 % Common [facility] respiratory rate 2022-02-02 10:10:00 18 /min Comm on [facility] blood pressure 2022-02-02 10:10:00 135 mm[Hg] Common [facility] - systolic [facility] blood pressure 2022-02-02 10:10:00 78 mm[Hg] Common Spirit - diastolic [facility] height 2021-10-26 08:40:00 63 [in_i] Common [facility] weight 2021-10-26 08:40:00 162.6 [lb_av] [facility] temperature 2021-10-26 08:40:00 97.2 [degF] Common [facility] bmi 2021-10-26 08:40:00 28.8 kg/m2 Common [facility] oximetry 2021-10-26 08:40:00 100 % [facility] respiratory rate 2021-10-26 08:40:00 18 /min Comm on [facility] blood pressure 2021-10-26 08:40:00 133 mm[Hg] Common [facility] - systolic [facility] blood pressure 2021-10-26 08:40:00 63 mm[Hg] Common [facility] diastolic [facility] height 2021-07-27 08:20:00 63 [in_i] Common [facility] weight 2021-07-27 08:20:00 161.4 [lb_av] [facility] temperature 2021-07-27 08:20:00 97.3 [degF] Common [facility] bmi 2021-07-27 08:20:00 28.59 kg/m2 [facility] oximetry 2021-07-27 08:20:00 100 % [facility] respiratory rate 2021-07-27 08:20:00 18 /min Comm on [facility] blood pressure 2021-07-27 08:20:00 131 mm[Hg] Common [facility] - systolic [facility] blood pressure 2021-07-27 08:20:00 80 mm[Hg] Common [facility] diastolic [facility] Procedures Procedure Date / Time Performed Performing Clinician [facility] e HOME HEALTH - OTHER 2019-09-17 05:01:00 Doctor Unassigned, No Un [facility] of [facility] HOME HEALTH - OTHER 2019-09-06 05:01:00 Doctor Unassigned, No Un [facility]versity of [facility] HEALTH - OTHER 2019-08-14 06:01:00 [facility] Start End Encounter Admission Attending Care Care Encounter Source Date/Time Date/Time Type Type Clinicians Facility Department ID 2022-05-04 Outpatient [place]roy[place], STLMLC STLMLC [id number] Common 08:18:00 Rik [facility] 2022-04-01 Outpatient [place], STLMLC STLMLC [id number] Common 09:32:08 Rik [id number] [facility] 2021-07-08 Outpatient [place], STLMLC STLMLC [id number] Common 14:12:28 Rik [id number] [facility] 2021-07-08 Outpatient [place], STLMLC STLMLC [id number] Common 13:37:39 Rik [id number] [facility] 2021-07-08 Outpatient [place], STLMLC STLMLC [id number] Common 13:01:06 Rik [id number] [facility] 2021-07-08 Outpatient [place], STLMLC STLMLC [id number] Common 12:01:19 Rik [id number] [facility] 2021-07-08 Outpatient [place], STLMLC STLMLC [id number] Common 11:59:22 Rik [id number] [facility] 2021-07-08 Outpatient [place], STLMLC STLMLC [id number] Common 11:46:26 Rik [id number] [facility] 2021-07-08 Outpatient [place], STLMLC STLMLC [id number] Common 11:21:51 Rik [id number] [facility] 2021-07-08 Outpatient [place], STLMLC STLMLC [id number] Common 11:21:28 Rik [id number] [facility] 2021-07-08 Outpatient [place], STLMLC STLMLC [id number] Common 11:16:44 Rik [id number] [facility] 2021-07-08 Outpatient Arroyo, STLMLC STLMLC [id number] Common 11:02:45 [facility] [id number] 2022-07-20 2022-07-20 Outpatient KWAME Cho [id number] [facility] 09:00:00 09:00:00 Amanda Gracia [facility] 2022-05-05 2022-05-05 OFFICE STLMLC STLMLC [id number] Co mmon 00:00:00 00:00:00 VISIT [facility] PT - CHI LEVEL 4 [facility] 2022-02-02 2022-02-02 OFFICE STLMLC STLMLC [id number] Co mmon 00:00:00 00:00:00 VISIT [facility] PT - CHI LEVEL 4 [facility] 2022-01-25 2022-01-25 (TEL) STLMLC STLMLC [id number] Co mmon 00:00:00 00:00:00 [facility] 2022-01-20 2022-01-20 (TEL) STLMLC STLMLC [id number] Co mmon 00:00:00 00:00:00 [facility] 2022-01-04 2022-01-04 Outpatient DMG DMG [id number] [facility] 12:00:00 12:00:00 [id number] 2021-10-26 2021-10-26 OFFICE STLMLC STLMLC [id number] Co mmon 00:00:00 00:00:00 VISIT [facility] PT - CHI LEVEL 4 [facility] 2021-09-02 2021-09-02 (TEL) STLMLC STLMLC [id number] Co mmon 00:00:00 00:00:00 [facility] 2021-09-02 2021-09-02 (TEL) STLMLC STLMLC [id number] Co mmon 00:00:00 00:00:00 [facility] 2021-07-31 2021-07-31 (TEL) STLMLC STLMLC [id number] Co mmon 00:00:00 00:00:00 [facility] 2021-07-27 2021-07-27 OFFICE STLMLC STLMLC [id number] Co mmon 00:00:00 00:00:00 VISIT [facility] LEVEL 4 [facility] 2021-01-23 2021-01-23 Outpatient STLMLC STLMLC [id number] Common 00:00:00 00:00:00 [facility] 2020-10-20 2020-10-20 Outpatient STLMLC STLMLC [id number] Common 00:00:00 00:00:00 [facility] 2020-08-13 2020-08-13 Outpatient STLMLC STLMLC [id number] Common 00:00:00 00:00:00 [facility] 2020-07-21 2020-07-21 Outpatient STLMLC STLMLC [id number] Common 00:00:00 00:00:00 [facility] 2020-06-13 2020-06-13 Outpatient STLMLC STLMLC [id number] Common 00:00:00 00:00:00 [facility] 2020-06-03 2020-06-03 Outpatient STLMLC STLMLC [id number] Common 00:00:00 00:00:00 [facility] 2020-05-19 2020-05-19 Outpatient STLMLC STLMLC [id number] Common 00:00:00 00:00:00 [facility] 2020-04-28 2020-04-28 Outpatient STLMLC STLMLC [id number] Common 00:00:00 00:00:00 [facility] 2020-04-11 2020-04-11 Outpatient STLMLC STLMLC [id number] Common 00:00:00 00:00:00 [facility] 2020-04-09 2020-04-09 Outpatient STLMLC STLMLC [id number] Common 00:00:00 00:00:00 [facility] 2020-03-28 2020-03-28 Outpatient STLMLC STLMLC [id number] Common 00:00:00 00:00:00 [facility] 2020-01-10 2020-01-10 [id number] Common 14:00:00 14:00:[address] [facility] 2019-10-25 2019-10-25 [facility] [id number] Common 10:00:00 10:00:[address] [facility] 2019-10-12 2019-10-12 [facility] [id number] Common 10:27:00 10:27:[address] [facility] 2019-10-11 2019-10-11 [facility]patient [facility] [id number] Common 08:00:00 08:00:[address] [facility] 2019-09-18 2019-09-18 [facility] [id number] Common 10:15:00 10:15:[address] [facility] 2019-09-18 2019-09-18 Outpatient [facility] [id number] Univers 00:00:00 00:00:00 ity of [facility] 2019-09-17 2019-09-17 [facility] [id number] Common 11:26:00 11:26:[address] [facility] 2019-09-17 2019-09-17 Outpatient [facility] [id number] Univers 00:00:00 00:00:00 ity of [facility] 2019-09-17 2019-09-17 Orders Doctor CHAVEZ [id number] 00:00:00 00:00:00 Only Unassigned, ARPIT [id number] [place] [facility] [id number] 2019-09-17 2019-09-17 Orders Doctor CHAVEZ [id number] Univers 00:00:00 00:00:00 Only Unassigned, ARPIT [id number] ity of [place] [facility] [id number] [place] as [phone] [address] 2019-09-11 2019-09-11 Outpatient [facility] [id number] Univers 00:00:00 00:00:00 ity [facility] 2019-09-06 2019-09-06 Outpatient [facility] [id number] Univers 00:00:00 00:00:00 ity [facility] 2019-09-06 2019-09-06 Orders Doctor CHAVEZ [id number] 00:00:00 00:00:00 Only Unassigned, ARPIT [id number] [place] [facility] [id number] 2019-09-06 2019-09-06 Orders Doctor CHAVEZ [id number] [facility] 00:00:00 00:00:00 Only Unassigned, ARPIT [id number] ity of [place] [facility] [id number] Ciro as [phone] [address] 2019-08-31 2019-08-31 Outpatient [facility] [id number] Common 15:14:00 15:14:[address] [employer] [address] [facility] 2019-08-14 2019-08-14 Orders Doctor CHAVEZ [id number] 00:00:00 00:00:00 Only Unassigned, ARPIT [id number] [place] [facility] [id number] 2019-08-14 2019-08-14 Orders Doctor CHAVEZ [id number] [facility] 00:00:00 00:00:00 Only Unassigned, ARPIT [id number] ity of [place] [facility] [id number] C[place] as [phone] [address] 2019-07-10 2019-07-10 [facility] [id number] Common 08:00:00 08:00:[address] [employer] [address] [facility] 2019-04-30 2019-04-30 [id number] Common 14:30:00 14:30:[address] [employer] [address] [facility] 2019-04-09 2019-04-09 Outpatient [facility] [id number] Common 14:45:00 14:45:[address] [facility] 2018-12-29 2018-12-29 Outpatient Rylan Rodney [id number] Common 10:00:00 10:00:00 [employer] [facility] [place] [facility] Results Test Description Test Time Test Comments Results Result Comments Source CBC W/AUTO DIFF 2022-07-20 11:01:00 Test Item Value Reference Range Interpretation Comme nts WHITE BLOOD CELL (test code = WBC) 6.0 K/mm3 3.5-11.0 N RED BLOOD CELL (test code = RBC) 2.49 M/mm3 4.70-6.10 L HEMOGLOBIN (test code = HGB) 7.3 G/DL 10.4-14.9 L HEMATOCRIT (test code = HCT) 22.2 % 31.5-44.1 L MEAN CELL VOLUME (test code = MCV) 89.2 Fl 84.5-98.6 N MEAN CELL HGB (test code = MCH) 29.3 pg 27.0-34.2 N MEAN CELL HGB CONCETRATION (test code = MCHC) 32.9 G/DL 31.5-34. 0 N RED CELL DISTRIBUTION WIDTH (test code = RDW) 12.6 SD 11.5-14. 5 N PLATELET COUNT (test code = PLT) 324 K/mm3 150-450 N MEAN PLATELET VOLUME (test code = MPV) 9.90 fL 7.0-10.5 N NEUTROPHIL % (test code = NT%) 65.6 % 40-76 N IMMATURE GRANULOCYTE % (test code = IG%) 0.3 % 0.0-5.0 N LYMPHOCYTE % (test code = LY%) 23.5 % 20.5-51.1 N MONOCYTE % (test code = MO%) 6.5 % 1.7-9.3 N EOSINOPHIL % (test code = EO%) 3.1 % 0.0-6.0 N BASOPHIL % (test code = BA%) 1.0 % 0.0-2.0 N NUCLEATED RBC % (test code = NRBC%) 0.0 /100WBC% 0.0-1.0 N NEUTROPHIL # (test code = NT#) 4.0 K/mm3 1.8-7.6 N IMMATURE GRANULOCYTE # (test code = IG#) 0.02 x10 3/uL 0.00-0.03 N LYMPHOCYTE # (test code = LY#) 1.4 K/mm3 0.6-3.2 N MONOCYTE # (test code = MO#) 0.4 K/mm3 0.3-1.1 N EOSINOPHIL # (test code = EO#) 0.2 K/mm3 0.0-0.4 N BASOPHIL # (test code = BA#) 0.1 K/mm3 0.0-0.1 N NUCLEATED RBC # (test code = NRBC#) 0.0 K/mm3 0.0-0.1 N MANUAL DIFF REQUIRED (test code = MDIFF) NO DIFF/SCN CRITERIA CBC W/AUTO [id number] 10:58:00 Test Item Value Reference Range Interpretation Comments WHITE BLOOD CELL TEST NOT 3.5-11.0 N Previously (test code = WBC) PERFORMED K/mm3 reporte d result: 5.0 K/dn1Jwxogi by: [id number] on 07/20/22:1050~~ ~~ ~~~~~~~~~~~~~~~ ~~ ~~~~~~~~~~~~~~~ ~~ ~~ This i s a CORRECTED REPORT RED BLOOD CELL (test TEST NOT 4.70-6.10 N Previou sly code = RBC) PERFORMED M/mm3 reported res ult: 4.90 M/ey4Jtoda d by: [id number] on 07/20/22:1052~~ ~~ ~~~~~~~~~~~~~~~ ~~ ~~~~~~~~~~~~~~~ ~~ ~~ This i s a CORRECTED REPORT HEMOGLOBIN (test TEST NOT 10.4-14.9 N Previously code = HGB) PERFORMED G/DL reported resu lt: 14.7 G/DLEdited by: [id number] on 07/20/22:1052~~ ~~ ~~~~~~~~~~~~~~~ ~~ ~~~~~~~~~~~~~~~ ~~ ~~ This i s a CORRECTED REPORT HEMATOCRIT (test TEST NOT 31.5-44.1 N Previously code = HCT) PERFORMED % reported result : 44.1 %Edited by : [id number] on 07/20/22:1053~~ ~~ ~~~~~~~~~~~~~~~ ~~ ~~~~~~~~~~~~~~~ ~~ ~~ This i s a CORRECTED REPORT MEAN CELL VOLUME TEST NOT 84.5-98.6 N Previously (test code = MCV) PERFORMED Fl reported r esult: 90.0 FlEdited b y: [id number] on 07/20/22:1053~~ ~~ ~~~~~~~~~~~~~~~ ~~ ~~~~~~~~~~~~~~~ ~~ ~~ This i s a CORRECTED REPORT MEAN CELL HGB (test TEST NOT 27.0-34.2 N Previous ly code = MCH) PERFORMED pg reported result : 30.0 pgEdited b y: [id number] on 07/20/22:1053 ~~~~~~~~~~~~~~~ ~~ ~~~~~~~~~~~~~~~ ~~ ~~~~~~ Th is is a CORRECTED REPORT MEAN CELL HGB TEST NOT 31.5-34.0 N Previously CONCETRATION (test PERFORMED G/DL reporte d result: code = MCHC) 33.3 G/DLEdited by: [id number] on 07/20/22:1053 ~~~~~~~~~~~~~~~ ~~ ~~~~~~~~~~~~~~~ ~~ ~~~~~~ Th is is a CORRECTED REPORT RED CELL TEST NOT 11.5-14.5 N Previously DISTRIBUTION WIDTH PERFORMED SD reported result: (test code = RDW) 13.2 SDEdi raeann by: [id number] on 07/20/22:1053~~ ~~ ~~~~~~~~~~~~~~~ ~~ ~~~~~~~~~~~~~~~ ~~ ~~ This i s a CORRECTED REPORT PLATELET COUNT (test TEST NOT 150-450 N Previou sly code = PLT) PERFORMED K/mm3 reported res ult: 179 K/ht3Jkevuc by: [id number] on 07/20/22:1054~~ ~~ ~~~~~~~~~~~~~~~ ~~ ~~~~~~~~~~~~~~~ ~~ ~~ This i s a CORRECTED REPORT MEAN PLATELET VOLUME TEST NOT 7.0-10.5 N Previou sly (test code = MPV) PERFORMED fL reported r esult: 9.90 fLEdited b y: [id number] on 07/20/22:1054~~ ~~ ~~~~~~~~~~~~~~~ ~~ ~~~~~~~~~~~~~~~ ~~ ~~ This i s a CORRECTED REPORT NEUTROPHIL % (test TEST NOT 40-76 N Previousl y code = NT%) PERFORMED % reported result : 53.3 %Edited by : [id number] on 07/20/22:1054~~ ~~ ~~~~~~~~~~~~~~~ ~~ ~~~~~~~~~~~~~~~ ~~ ~~ This i s a CORRECTED REPORT IMMATURE GRANULOCYTE TEST NOT 0.0-5.0 N Previou sly % (test code = IG%) PERFORMED % reported result: 0.2 %Edited by: [id number] on 07/20/22:1054~~ ~~ ~~~~~~~~~~~~~~~ ~~ ~~~~~~~~~~~~~~~ ~~ ~~ This i s a CORRECTED REPORT LYMPHOCYTE % (test TEST NOT 20.5-51.1 N Previousl y code = LY%) PERFORMED % reported result : 27.9 %Edited by : [id number] on 07/20/22:1055~~ ~~ ~~~~~~~~~~~~~~~ ~~ ~~~~~~~~~~~~~~~ ~~ ~~ This i s a CORRECTED REPORT MONOCYTE % (test TEST NOT 1.7-9.3 N Previously code = MO%) PERFORMED % reported result : 9.0 %Edited by: [id number] on 07/20/22:1055~~ ~~ ~~~~~~~~~~~~~~~ ~~ ~~~~~~~~~~~~~~~ ~~ ~~ This i s a CORRECTED REPORT EOSINOPHIL % (test TEST NOT 0.0-6.0 H Previousl y code = EO%) PERFORMED % reported result : 8.4 %Edited by: [id number] on 07/20/22:1055~~ ~~ ~~~~~~~~~~~~~~~ ~~ ~~~~~~~~~~~~~~~ ~~ ~~ This i s a CORRECTED REPORT BASOPHIL % (test TEST NOT 0.0-2.0 N Previously code = BA%) PERFORMED % reported result : 1.2 %Edited by: [id number] on 07/20/22:1055~~ ~~ ~~~~~~~~~~~~~~~ ~~ ~~~~~~~~~~~~~~~ ~~ ~~ This i s a CORRECTED REPORT NUCLEATED RBC % TEST NOT 0.0-1.0 N Previously (test code = NRBC%) PERFORMED reported result: /100WBC% 0.0 /100WBC%Edited by: [id number] on 07/20/22:1055~~ ~~ ~~~~~~~~~~~~~~~ ~~ ~~~~~~~~~~~~~~~ ~~ ~~ This i s a CORRECTED REPORT NEUTROPHIL # (test TEST NOT 1.8-7.6 N Previousl y code = NT#) PERFORMED K/mm3 reported res ult: 2.7 K/ag4Eeroyq by: [id number] on 07/20/22:1056~~ ~~ ~~~~~~~~~~~~~~~ ~~ ~~~~~~~~~~~~~~~ ~~ ~~ This i s a CORRECTED REPORT IMMATURE GRANULOCYTE TEST NOT 0.00-0.03 N Previou sly # (test code = IG#) PERFORMED x10 reporte d result: 3/uL 0.01 x10\S\3/uLEdite d by: [id number] on 07/20/22:1056~~ ~~ ~~~~~~~~~~~~~~~ ~~ ~~~~~~~~~~~~~~~ ~~ ~~ This i s a CORRECTED REPORT LYMPHOCYTE # (test TEST NOT 0.6-3.2 N Previousl y code = LY#) PERFORMED K/mm3 reported res ult: 1.4 K/ok8Kefupv by: [id number] on 07/20/22:1056~~ ~~ ~~~~~~~~~~~~~~~ ~~ ~~~~~~~~~~~~~~~ ~~ ~~ This i s a CORRECTED REPORT MONOCYTE # (test TEST NOT 0.3-1.1 N Previously code = MO#) PERFORMED K/mm3 reported res ult: 0.5 K/jc7Epftft by: [id number] on 07/20/22:1056~~ ~~ ~~~~~~~~~~~~~~~ ~~ ~~~~~~~~~~~~~~~ ~~ ~~ This i s a CORRECTED REPORT EOSINOPHIL # (test TEST NOT 0.0-0.4 N Previousl y code = EO#) PERFORMED K/mm3 reported res ult: 0.4 K/vz1Vygsby by: [id number] on 07/20/22:1056~~ ~~ ~~~~~~~~~~~~~~~ ~~ ~~~~~~~~~~~~~~~ ~~ ~~ This i s a CORRECTED REPORT BASOPHIL # (test TEST NOT 0.0-0.1 N Previously code = BA#) PERFORMED K/mm3 reported res ult: 0.1 K/zq7Qqjirx by: [id number] on 07/20/22:1057~~ ~~ ~~~~~~~~~~~~~~~ ~~ ~~~~~~~~~~~~~~~ ~~ ~~ This i s a CORRECTED REPORT NUCLEATED RBC # TEST NOT 0.0-0.1 N Previously (test code = NRBC#) PERFORMED K/mm3 repor raeann result: 0.0 K/ij1Iypolt by: [id number] on 07/20/22:1057~~ ~~ ~~~~~~~~~~~~~~~ ~~ ~~~~~~~~~~~~~~~ ~~ ~~ This i s a CORRECTED REPORT MANUAL DIFF REQUIRED NO DIFF/SCN CRITERIA (test code = MDIFF) PROTHROMBIN [id number] 10:00:00 Test Item Value Reference Range Interpretation Comments PT PATIENT (test 9.4 SECONDS 9.3-12.9 N code = PTP) INTERNATIONAL NORMAL 0.85 INR Unit 0.8-1.2 N TARGE T INR BY RATIO (test code = INDICATIO N Indication INR) INR1. Prophylax is of venous thrombos is 2.0 - 3.0 (orthoped ic surgery), Proph ylaxis of venous throm bosis (other than hig h-risk surgery), Treat ment of Deep Vein Thrombosis/Pulm onary Embolism, Preve ntion of systemic emb olism - Tissue heart va lves, Acute Myocardia l Infarction (to prevent systemic emboli sm), Valvular heart disease, Acute Myocardial Infa rction (to prevent sys temic embolism), Valv ular heart disease, Atrial Fibrillation, Bileaflet mecha nical valve in aortic position.2. Mec hanical prosthetic valv es (high risk), 2. 5 - 3.5 Presence of Lup us Anticoagulant o r Antiphospholipi d Antibodies, Pre vention of systemic emb olism - Acute Myocardia l Infarction (to prevent recurrent infar ct).
[2022-07-31 10:37] LABS: Hematocrit 22.9 % (36.0-45.0); Lymphocytes % 17.7 % (15.3-44.8); MCV 88.6 fL (80-100); MPV 8.7 fL (7.6-11.3); RBC Red Blood Cell Count 2.58 M/uL (3.86-4.86)
[2022-07-31 10:38] LABS: Protime INR 0.91
[2022-07-31 11:03] LABS: Albumin 2.7 g/dL (3.4-5.0); Bilirubin Total 0.2 mg/dL (0.2-1.0); Ferritin 74.9 ng/mL (8-388); Potassium 4.5 mmol/L (3.5-5.1); Protein, Total 6.4 g/dL (6.4-8.2)
[2022-07-31] MEDS ORDERED: EPOETIN ALFA 10,000 UNIT/ML VIAL SQ ONE (12:30)
--- NOTE | 2022-07-31 16:47 | ER ---
Nurse's Notes [facility] Name: Glen Carlisle Age: 67 yrs Sex: Female : 1955 Arrival Date: 07/31/2022 Time: 10:05 Bed 5 Private MD: Rik Arroyo Diagnosis: Anemia in chronic kidney disease Presentation: 07/31 10:07 Chief complaint: Patient states: reports having blood drawn on Tuesday and last night aa5 Dr. Arroyo contacted her to notify her of hemoglobin of 6. Pt reports mild SOB. Reports last week hemoglobin was 7. 10:07 Coronavirus screen: At this time, the client does not indicate any symptoms associated aa5 with coronavirus-19. Ebola Screen: Patient denies travel to an Ebola-affected area in the 21 days before illness onset. Initial Sepsis Screen: Does the patient meet any 2 criteria? No. Patient's initial sepsis screen is negative. Does the patient have a suspected source of infection? No. Patient's initial sepsis screen is negative. Risk Assessment: Do you want to hurt yourself or someone else? Patient reports no desire to harm self or others. Onset of symptoms was July 31, 2022. 10:07 Acuity: DAYSI 2 aa5 10:07 Method Of Arrival: Ambulatory aa5 Historical: - Allergies: 10:16 No Known Allergies; aa5 - Home Meds: 10:16 Glipizide Oral 50 mg daily [Active]; Hydralazine Oral 100 mg twice a day [Active]; aa5 Plavix Oral 75 mg daily [Active]; atorvastatin 40 mg daily [Active]; amlodipine oral 10 mg daily [Active]; carvedilol 6.25 mg twice a day [Active]; Sodium Bicarbonate Oral 650 mg twice a day [Active]; Vitamin D Oral every tuesday [Active]; - PMHx: 10:16 Diabetes mellitus; Hypertensive disorder; aa5 - Immunization history:: Adult Immunizations unknown. - Social history:: Smoking status: . Screenin:28 [facility] ED Fall Risk Assessment (Adult) History of falling in the last 3 months, kc6 including since admission No falls in past 3 months (0 pts) Confusion or Disorientation No (0 pts) Intoxicated or Sedated No (0 pts) Impaired Gait No (0 pts) Mobility Assist Device Used No (0 pt) Altered Elimination No (0 pt) Score/Fall Risk Level 0 - 2 = Low Risk Oriented to surroundings, Maintained a safe environment, Educated pt \T\ family on fall prevention, incl call for assistance when getting out of bed, Assessed \T\ reinforced patient's understanding of fall precautions, Hourly rounding (assess needs \T\ fall precautionary measures) done. Abuse screen: Denies threats or abuse. Denies injuries from another. Nutritional screening: No deficits noted. Tuberculosis screening: No symptoms or risk factors identified. Assessment: 10:28 General: Appears in no apparent distress. comfortable, Behavior is calm, cooperative, kc6 appropriate for age. Pain: Denies pain. Neuro: Moore Agitation-Sedation Scale (RASS): 0 - Alert and Calm Level of Consciousness is awake, alert, obeys commands, Oriented to person, place, time, situation, Appropriate for age. Cardiovascular: Capillary refill < 3 seconds. Respiratory: Airway is patent Trachea midline Respiratory effort is even, unlabored, Respiratory pattern is regular, symmetrical. GI: No signs and/or symptoms were reported involving the gastrointestinal system. : No signs and/or symptoms were reported regarding the genitourinary system. EENT: No signs and/or symptoms were reported regarding the EENT system. Derm: No signs and/or symptoms reported regarding the dermatologic system. Skin is intact, Skin is dry, Skin is pale, Skin temperature is warm. Musculoskeletal: No signs and/or symptoms reported regarding the musculoskeletal system. Circulation, motion, and sensation intact. Capillary refill < 3 seconds, Range of motion: intact in all extremities. 11:28 Reassessment: Patient appears in no apparent distress at this time. No changes from kc6 previously documented assessment. Patient and/or family updated on plan of care and expected duration. Pain level reassessed. Patient is alert, oriented x 3, equal unlabored respirations, skin warm/dry/pink. Patient denies pain at this time. 12:28 Reassessment: Patient appears in no apparent distress at this time. No changes from kc6 previously documented assessment. Patient and/or family updated on plan of care and expected duration. Pain level reassessed. Patient is alert, oriented x 3, equal unlabored respirations, skin warm/dry/pink. 13:28 Reassessment: Patient appears in no apparent distress at this time. No changes from kc6 previously documented assessment. Patient and/or family updated on plan of care and expected duration. Pain level reassessed. Patient is alert, oriented x 3, equal unlabored respirations, skin warm/dry/pink. Patient denies pain at this time. 14:28 Reassessment: Patient appears in no apparent distress at this time. No changes from kc6 previously documented assessment. Patient and/or family updated on plan of care and expected duration. Pain level reassessed. Patient is alert, oriented x 3, equal unlabored respirations, skin warm/dry/pink. Patient denies pain at this time. 15:15 Reassessment: Verified consent for signed by pt, verified blood with ADRIAN Lopez. iw Transfusion started at 1500 to RAC, no adverse reaction noted in first 15 minutes, see transfusion record. 16:10 Reassessment: Patient appears in no apparent distress at this time. Patient and/or iw family updated on plan of care and expected duration. Pain level reassessed. Patient is alert, oriented x 3, equal unlabored respirations, skin warm/dry/pink. 17:12 Reassessment: Patient appears in no apparent distress at this time. Patient and/or iw family updated on plan of care and expected duration. Pain level reassessed. Patient is alert, oriented x 3, equal unlabored respirations, skin warm/dry/pink. Patient states feeling better. Patient states symptoms have improved. Vital Signs: 10:07 BP 184 / 92; Pulse 75; Resp 16 S; Temp 98.2(TE); Pulse Ox 100% on R/A; aa5 11:45 BP 163 / 61; Pulse 72; Resp 18 S; Pulse Ox 99% on R/A; kc6 12:44 BP 164 / 60; Pulse 72; Resp 22 S; Pulse Ox 98% on R/A; Pain 0/10; kc6 13:41 BP 172 / 61; Pulse 71; Resp 20 S; Pulse Ox 100% on R/A; kc6 14:41 BP 166 / 73; Pulse 72; Resp 18 S; Pulse Ox 100% on R/A; kc6 ED Course: 10:05 Patient arrived in ED. am2 10:05 Rik Arroyo DO is Private Physician. am2 10:06 Bay Tomlin MD is Attending Physician. rt 10:07 Arm band placed on. aa5 10:11 Jessica Amador, RN is Primary Nurse. kc6 10:16 Triage completed. aa5 10:28 Inserted saline lock: 20 gauge in right antecubital area, using aseptic technique. kc6 Blood collected. 10:29 Patient has correct armband on for positive identification. Placed in gown. Bed in low kc6 position. Call light in reach. Side rails up X2. Adult w/ patient. 10:29 Retic Count Sent. kc6 10:29 Iron Level Sent. kc6 10:29 Ferritin Sent. kc6 10:29 Vitamin B12 Sent. kc6 10:29 TIBC Sent. kc6 10:29 Ptt, Activated Sent. kc6 10:29 Type And Screen Sent. kc6 10:29 PT-INR Sent. kc6 10:29 CMP Sent. kc6 10:29 CBC with Diff Sent. kc6 16:47 Rik Arroyo DO is Referral Physician. rt 16:47 Amanda Murdock MD is Referral Physician. rt 17:13 No provider procedures requiring assistance completed. IV discontinued, intact, iw bleeding controlled, No redness/swelling at site. Pressure dressing applied. Administered Medications: 12:43 Drug: Epogen (epoetin) 12858 units Route: Sub-Q; Site: abdomen; kc6 17:13 Follow up: Response: No adverse reaction iw Medication: 17:13 VIS not applicable for this client. iw Outcome: 16:47 Discharge ordered by MD. rt 17:13 Discharged to home ambulatory. iw 17:13 Condition: good 17:13 Discharge instructions given to patient, Instructed on discharge instructions, follow up and referral plans. Demonstrated understanding of instructions, follow-up care. 17:13 Patient left the ED. iw Signatures: Araseli Morales RN RN iw Brianna Dodson RN RN aa5 Margarita Monaco am2 Jessica Amador, RN RN kc6 Bay Tomlin MD MD rt Corrections: (The following items were deleted from the chart) 15:21 15:15 Reassessment: Verified consent for signed by pt, verified blood with cristofer Lopez RN. Transfusion started at 1500 to RAC, no adverse reaction noted in first 15 minutes iw
--- NOTE | 2022-07-31 16:47 | EDPHYS ---
Physician Documentation [facility] Name: Glen Carlisle Age: 67 yrs Sex: Female : 1955 Arrival Date: 07/31/2022 Time: 10:05 Bed 5 Private MD: Cruz Rik ED Physician [place] HPI: 07/31 10:46 This 67 yrs old Female presents to ER via Ambulatory with complaints of rt Abnormal Lab Results - low hgb. 10:46 Patient presents to the ED with reported low hemoglobin on outpatient labs. These labs rt are drawn Tuesday, stating that her hemoglobin was about 6. But a week prior, it was 7, she is scheduled to undergo renal biopsy at that time, ever, they would not do it due to the low hemoglobin. The patient states that she has some mild dyspnea on exertion but is not significant. The patient denies any acute complaints stating that she feels well. She denies any bleeding. She denies any bloody stools, black, tarry stools.. Historical: - Allergies: 10:16 No Known Allergies; aa5 - Home Meds: 10:16 Glipizide Oral 50 mg daily [Active]; Hydralazine Oral 100 mg twice a day [Active]; aa5 Plavix Oral 75 mg daily [Active]; atorvastatin 40 mg daily [Active]; amlodipine oral 10 mg daily [Active]; carvedilol 6.25 mg twice a day [Active]; Sodium Bicarbonate Oral 650 mg twice a day [Active]; Vitamin D Oral every tuesday [Active]; - PMHx: 10:16 Diabetes mellitus; Hypertensive disorder; aa5 - Immunization history:: Adult Immunizations unknown. - Social history:: Smoking status: . ROS: 10:46 Constitutional: Negative for fever, chills, and weight loss, Eyes: Negative for injury, rt pain, redness, and discharge, ENT: Negative for injury, pain, and discharge, Cardiovascular: Negative for chest pain, palpitations, and edema, Abdomen/GI: Negative for abdominal pain, nausea, vomiting, diarrhea, and constipation, MS/Extremity: Negative for injury and deformity, Skin: Negative for injury, rash, and discoloration, Neuro: Negative for headache, weakness, numbness, tingling, and seizure, Psych: Negative for depression, anxiety, suicide ideation, homicidal ideation, and hallucinations. 10:46 Respiratory: Positive for dyspnea on exertion, Negative for cough. Exam: 10:46 Constitutional: This is a well developed, well nourished patient who is awake, alert, rt and in no acute distress. Head/Face: Normocephalic, atraumatic. Chest/axilla: Normal chest wall appearance and motion. Nontender with no deformity. No lesions are appreciated. Cardiovascular: Regular rate and rhythm with a normal S1 and S2. No gallops, murmurs, or rubs. Normal PMI, no JVD. No pulse deficits. Respiratory: Lungs have equal breath sounds bilaterally, clear to auscultation and percussion. No rales, rhonchi or wheezes noted. No increased work of breathing, no retractions or nasal flaring. Abdomen/GI: Soft, non-tender, with normal bowel sounds. No distension or tympany. No guarding or rebound. No evidence of tenderness throughout. Skin: Warm, dry with normal turgor. Normal color with no rashes, no lesions, and no evidence of cellulitis. MS/ Extremity: Pulses equal, no cyanosis. Neurovascular intact. Full, normal range of motion. Neuro: Awake and alert, GCS 15, oriented to person, place, time, and situation. Cranial nerves II-XII grossly intact. Motor strength 5/5 in all extremities. Sensory grossly intact. Cerebellar exam normal. Normal gait. Psych: Awake, alert, with orientation to person, place and time. Behavior, mood, and affect are within normal limits. 10:46 Eyes: Pale conjunctiva, extraocular muscles intact. Vital Signs: 10:07 BP 184 / 92; Pulse 75; Resp 16 S; Temp 98.2(TE); Pulse Ox 100% on R/A; aa5 11:45 BP 163 / 61; Pulse 72; Resp 18 S; Pulse Ox 99% on R/A; kc6 12:44 BP 164 / 60; Pulse 72; Resp 22 S; Pulse Ox 98% on R/A; Pain 0/10; kc6 13:41 BP 172 / 61; Pulse 71; Resp 20 S; Pulse Ox 100% on R/A; kc6 14:41 BP 166 / 73; Pulse 72; Resp 18 S; Pulse Ox 100% on R/A; kc6 MDM: 10:07 Patient medically screened. rt 14:18 Differential Diagnosis Anemia, renal failure, hemorrhage.. Data reviewed: vital signs, rt nurses notes, diagnostic data from outside facility, Discussed previous hemoglobins, creatinine in the outpatient setting, lab test result(s), EKG, radiologic studies. Consideration of Admission/Observation Escalation of care including admission/observation considered. 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 Request that despite the fact that the hemoglobin is 7.7, that 1 unit of blood be given as well as a dose of Epogen, the patient may be discharged hopefully obtain a renal biopsy in the outpatient setting.. I considered the following discharge prescriptions or medication management in the emergency department Medications were administered in the Emergency Department. See MAR. External Records Reviewed: Outpatient labs: Obtain outpatient labs from the patient's compressor engineer, creatinine is at baseline. Care significantly affected by the following chronic conditions: Chronic Kidney Disease. Counseling: I had a detailed discussion with the patient and/or guardian regarding: the historical points, exam findings, and any diagnostic results supporting the discharge/admit diagnosis, lab results, the need for outpatient follow up, to return to the emergency department if symptoms worsen or persist or if there are any questions or concerns that arise at home. 07/31 10:17 Order name: CBC with Diff; Complete Time: 11:35 rt 07/31 10:17 Order name: CMP; Complete Time: 11:35 rt 07/31 10:17 Order name: PT-INR; Complete Time: 11:35 rt 07/31 10:17 Order name: Ptt, Activated; Complete Time: 11:35 rt 07/31 10:17 Order name: Type And Screen rt 07/31 10:17 Order name: TIBC; Complete Time: 11:35 rt 07/31 10:17 Order name: Ferritin; Complete Time: 11:35 rt 07/31 10:17 Order name: Vitamin B12; Complete Time: 11:35 rt 07/31 10:17 Order name: Iron Level rt 07/31 10:17 Order name: Retic Count; Complete Time: 11:35 rt 07/31 11:43 Order name: ABO/RH no charge; Complete Time: 11:51 EDMS 07/31 13:40 Order name: Packed RBC Leukored EDMS Administered Medications: 12:43 Drug: Epogen (epoetin) 36061 units Route: Sub-Q; Site: abdomen; kc6 17:13 Follow up: Response: No adverse reaction iw Disposition Summary: 07/31/22 16:47 Discharge Ordered Location: Home rt Problem: an ongoing problem rt Symptoms: have improved rt Condition: Stable rt Diagnosis - Anemia in chronic kidney disease rt Followup: rt - With: - When: 2 - 3 days - Reason: Followup: rt - With: - When: 2 - 3 days - Reason: Discharge Instructions: - Discharge Summary Sheet rt - Anemia rt - Blood Transfusion, Adult rt Forms: - Medication Reconciliation Form rt - Thank You Letter rt - Antibiotic Education rt - Prescription Opioid Use rt Signatures: Dispatcher [employer] Araseli Giang, RN Brianna Valentine RN RN [email or web address] Jessica Amador RN RN [id number] [place] MD MD rt Corrections: (The following items were deleted from the chart) 10:50 10:18 Miscellaneous Lab Test+R.LAB.BRZ ordered. EDMN EDMS
[2022-07-31 17:20] VITALS: TEMP 98.2
[2022-07-31 17:23] VITALS: O2SAT 100
[2022-07-31 17:24] VITALS: BP 166/73
== END 2022-07-31 17:13 | disposition home or self-care (01) ==
LOC: ER 09:57
PROC: 30233N1 Transfusion of Nonautologous Red Blood Cells into Peripheral Vein, Percutaneous Approach (ICD-10-PCS; principal; 2022-07-31)
DX: E11.22 Type 2 diabetes mellitus with diabetic chronic kidney disease (principal); I12.9 Hypertensive chronic kidney disease with stage 1 through stage 4 chronic kidney disease, or unspecified chronic kidney disease; N18.9 Chronic kidney disease, unspecified; D63.1 Anemia in chronic kidney disease
CPT/HCPCS: 85025; 36415; 86900; 86850; 85610; 85044; 82565; 86901; 85730; 82728; 82607; 83540; 80053; 84466; 96372; 99284; 36430; J2250; P9016

== ENCOUNTER 2022-10-28 14:34 | Inpatient (IN) | payer OTHER ==
--- OUTSIDE RECORDS SUMMARY | 2022-10-28 14:38 | XMS REPORT | Continuity of Care Document ---
:1955 Author Organization [facility] t Address [address] [place] [address] Care Team Providers Name Role Phone Rik Arroyo Attending Clinician Unavailable Amanda Murdock Attending Clinician Unavailable Doctor Unassigned, Mazie Attending Clinician Unavailable Amanda Murdock Admitting Clinician Unavailable Payers Payer Name Policy Type Policy Number Effective Date Expiration Date S [facility] [id number] (MEDICARE 00:00:00 REPLACEMENT HMO) [employer] [facility] [id number] 2017 00:00:00 Problems Condition Condition Condition Status Onset Resolution Last Treating Co mments Source Name Details Category Date Date Treatment Clinician Date 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 09-11 ity of mellitus mellitus 00:00: [place] without without 00 Medical complicati complicati Leonid montemayor on, on, without without long-term long-term current current use of use of insulin insulin Chronic Chronic Problem Common kidney kidney Spirit disease disease, - CHI stage [address] (disorder) unspecifie [facility] [id number] Anemia in Problem Com mon chronic Spirit kidney - CHI disease [facility] [id number] HTN, goal Problem Comm on below Spirit 130/80 - CHI [facility] [id number] Type 2 Problem Common diabetes Spirit mellitus - CHI with diabetic [facility] peripheral Medica l angiopathy Center without gangrene, without long-term current use of insulin [id number] Type 2 [place] n [id number] diabetes Spirit mellitus - CHI with other diabetic [facility] kidney Medical complicati Center on [id number] Type 2 Problem Commo n 05 diabetes Spirit mellitus - CHI with diabetic [facility] chronic Medical kidney Center disease [id number] Mixed Problem Common hyperlipid Spirit emia - CHI [facility] [id number] PAD Problem Common (periphera Spirit l artery - CHI disease) [facility] [id number] 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 of - CHI other part St of right [facility] foot with Medical fat layer Center exposed [id number] Type 2 Problem Commo n [id number] diabetes Spirit mellitus - CHI with foot [facility] [id number] Hypocalcem Problem Comm on ia Spirit - CHI [facility] [id number] Vitamin D Problem Comm on deficiency Spirit disease - CHI [facility] Allergies, Adverse Reactions, Alerts Allergy Allergy Status Severity Reaction(s) Onset Inactive Treating Comm ents Source Name Type Date Date Clinician No Known DA Active [facility] All[facility]ie 07-19 [facility] s 00:00: d 00 [facility] NO KNOWN Drug Active [facility] ALLERGIE [facility] [place] Social History Social Habit Start Date Stop Date Quantity Comments Source History of Tobacco Common Spirit - CHI Use [facility] Sex Assigned At Common Sp toro - CHI [facility] Cigarettes smoked 2018-02-23 2018-02-23 [facility] current (pack per 00:00:00 00:00:00 Medical Branch day) - Reported Cigarette pack-years 2018-02-23 2018-02-23 [facility] 00:00:00 00:00:00 Medical Branch Alcohol intake 2018-02-23 2018-02-23 [facility] 00:00:00 00:00:00 Medical [place] Smoking Status Start Date Stop Date Source Former Smoker 2022-05-02 00:00:00 2022-05-02 00:00:00 Common S pirit - CHI [facility] Medications Ordered Filled Start Stop Current Ordering Indication Dosage Frequency Signature Comments Components Source Medication Medication Date Date Medication? Clinician (SIG) Name Name glipiZIDE glipiZIDE No 1{table QD glipiZIDE ER 5 MG ER 5 MG 8-23 t_with_ ER 5 MG 00:00: food} 00 Amlodipine Amlodipine Yes Rik 1 tablet Common Besylate Besylate 5-14 Arroyo Spirit 00:00: - CHI [facility] Zestoretic Zestoretic Yes Rik 1 tablet Common 5-01 Arroyo Spirit 00:00: - [facility] 2018-06 No 40mg Common (Triamcinol (Triamcinol 1-18 S pirit one) one) 00:00: - [facility] 2018- No 40mg Common (Triamcinol (Triamcinol 1-18 S pirit one) one) 00:00: - [facility] 2018- No 40mg Common (Triamcinol (Triamcinol 1-18 S pirit one) one) 00:00: - [facility] 2018- No 40mg Common (Triamcinol (Triamcinol 1-18 S pirit one) one) 00:00: - [facility] Kenalog 2018- No 40mg Common (Triamcinol (Triamcinol 1-18 S pirit one) one) 00:00: - [facility] 2018- No 40mg Common (Triamcinol (Triamcinol 1-18 S pirit one) one) 00:00: - [facility] 2018- No 40mg Common (Triamcinol (Triamcinol 1-18 S pirit one) one) 00:00: - [facility] Kenalog 2018- No 40mg Common (Triamcinol (Triamcinol 1-18 S pirit one) one) 00:00: - CH[facility] METFORMIN 2019- Yes [id number] TAKE 1 U nivers 1,000 mg 0-07 TABLET BY ity of tablet 00:00: MOUTH [place] 00 TWICE A Medical DAY WITH Branch MEALS METFORMIN 2018-06 Yes [id number] TAKE 1 U nivers 1,000 mg 0-07 TABLET BY ity of tablet 00:00: MOUTH [place] 00 TWICE A Medical DAY WITH Branch MEALS METFORMIN 2018-06 Yes [id number] TAKE 1 U nivers 1,000 mg 0-07 TABLET BY ity of tablet 00:00: MOUTH [place] 00 TWICE A Medical DAY WITH Branch MEALS clopidogrel 2018- Yes 75mg Take 75 mg Univers 75 mg 1-30 by mouth ity of tablet 13:14: daily. [address] [id number]/ Yes Take by Uni vers folic 1-30 mouth. ity of ac/NADH/coQ 13:14: [place] [address] ([address]) [place] aspirin 81 Yes 81mg Take 81 mg U nivers mg chewable 1-30 by mouth ity of tablet 13:14: daily. [address] clopidogrel 2018- Yes 75mg Take 75 mg Univers 75 mg 1-30 by mouth ity of tablet 13:14: daily. [address] [id number]/ Yes Take by Uni vers folic 1-30 mouth. ity of ac/NADH/coQ 13:14: [place] [address] ([address]) [place] aspirin 81 Yes 81mg Take 81 mg U nivers mg chewable 1-30 by mouth ity of tablet 13:14: daily. [address] clopidogrel 2019- Yes 75mg Take 75 mg Univers 75 mg 1-30 by mouth ity of tablet 13:14: daily. [address] [id number]/ Yes Take by Uni vers folic 1-30 mouth. ity of ac/NADH/coQ 13:14: [place] [address] ([address]) [place] aspirin 81 2019- Yes 81mg Take 81 mg U nivers mg chewable 1-30 by mouth ity of tablet 13:14: daily. [address] atorvastati 2019- Yes [id number] 60mg Take 1.5 Univers n 40 mg 1-30 tablets by ity of tablet 00:00: mouth at [place] 00 bedtime. [facility] Branch atorvastati 2018- Yes [id number] 60mg Take 1.5 Univers n 40 mg 1-30 tablets by ity of tablet 00:00: mouth at [place] [address] bedtime. Medical Branch atorvastati 2019 Yes [id number] 60mg Take 1.5 Univers n 40 mg 1-30 tablets by ity of tablet 00:00: mouth at [place] 00 bedtime. Medical Branch VASCULERA Yes TAKE 1 Univer s 630 mg Tab 1-16 TABLET BY ity of 00:00: MOUTH ONCE [place] DAY Medical Branch VASCULERA Yes TAKE 1 Univer s 630 mg Tab 1-16 TABLET BY ity of 00:00: MOUTH ONCE [place] Medical Branch VASCULERA Yes TAKE 1 Univer s 630 mg Tab 1-16 TABLET BY ity of 00:00: MOUTH ONCE [place] Medical [facility] Glyxambi Glyxambi Yes Rik TAKE 1 Com mon Arroyo TABLET BY Spirit MOUTH - CHI EVERY St MORNING [facility] Clopidogrel Clopidogrel Yes Rik 1 tablet Common Bisulfate Bisulfate Arroyo Spir [facility] Vasculera Vasculera Yes Rik as Com mon Arroyo directed [facility] Metformin Metformin Yes Rik 1 tablet Common HCl HCl Arroyo with a [facility] meal [facility] Atorvastati Atorvastati Yes Rik 1 tablet Common n Calcium n Calcium Arroyo Spir [facility] Aspir-Low Aspir-Low Yes Rik 1 tablet Common Arroyo [facility] Lisinopril- Lisinopril- Yes Rik 1 tablet Common Hydrochloro Hydrochloro Arroyo [facility] thiazide thiazide [facility] Amlodipine Amlodipine Yes Rik 1 tablet Common Besylate Besylate Arroyo [facility] Metformin Metformin Yes Rik TAKE 1 C ommon HCl HCl Arroyo TABLET BY Spirit MOUTH - CHI TWICE A St DAY WITH A [facility] Glyxambi Glyxambi No Glyxambi 25-5 MG 25-5 [...] D3 Vitamin D3 No 1{capsu Vitamin D3 34244 UNIT 11916 UNIT le} 54383 UNIT amLODIPine amLODIPine No amLODIPine Besylate 10 [...] D3 Vitamin D3 No 1{capsu Vitamin D3 89641 UNIT 18264 UNIT le} 09720 UNIT amLODIPine amLODIPine No amLODIPine Besylate 10 [...] D3 Vitamin D3 No 1{capsu Vitamin D3 29760 UNIT 79946 UNIT le} 08260 UNIT Vitamin D2 Vitamin D2 No Vitamin [...] D3 Vitamin D3 No 1{capsu Vitamin D3 24064 UNIT 34953 UNIT le} 62861 UNIT Clopidogrel Clopidogrel No Clopidogre Bisulfate Bisulfate [...] D3 Vitamin D3 No 1{capsu Vitamin D3 19322 UNIT 92686 UNIT le} 37847 UNIT Clopidogrel Clopidogrel No Clopidogre Bisulfate Bisulfate [...] D3 Vitamin D3 No 1{capsu Vitamin D3 36285 UNIT 93469 UNIT le} 39681 UNIT Losartan Losartan No Losartan Potassium Potassium [...] D3 Vitamin D3 No 1{capsu Vitamin D3 80395 UNIT 89322 UNIT le} 29456 UNIT Glyxambi Glyxambi No Glyxambi 25-5 MG [...] D3 Vitamin D3 No 1{capsu Vitamin D3 58154 UNIT 02932 UNIT le} 79326 UNIT Losartan Losartan No 1{table QD Losartan [...] D3 Vitamin D3 No 1{capsu Vitamin D3 07281 UNIT 09671 UNIT le} 29398 UNIT Losartan Losartan No 1{table QD Losartan [...] 2018-11-13 Completed Common Spi rit - 16:04:00 [facility] PNEUMAVAX 23 PNEUMAVAX 2018-11-13 Completed Common Spi rit - 16:04:00 [facility] PNEUMAVAX 23 PNEUMAVAX 2018-11-13 Completed Common Spi rit - 16:04:00 [facility] PNEUMAVAX 23 PNEUMAVAX 2018-11-13 Completed Common Spi rit - 16:04:00 [facility] PNEUMAVAX 23 PNEUMAVAX 2018-11-13 Completed Common Spi rit - 16:04:00 [facility] PNEUMAVAX 23 PNEUMAVAX 2018-11-13 Completed Common Spi rit - 16:04:00 [facility] PNEUMAVAX 23 PNEUMAVAX 2018-11-13 Completed Common Spi rit - 16:04:00 [facility] PNEUMAVAX 23 PNEUMAVAX 2018-11-13 Completed Common Spi rit - 16:04:00 [facility] PNEUMAVAX 23 PNEUMAVAX 2018-11-13 Completed Common Spi rit - 16:04:00 [facility] Td 2013-07-12 Completed University of 00:00:00 [facility] Td 2013-07-12 Completed University 00:00:00 [facility] Td 2013-07-12 Completed University 00:00:00 [facility] Vital Signs Vital Name Observation Time Observation Value Comments Source height 2022-05-05 10:30:00 63 [in_i] Common [facility] weight 2022-05-05 10:30:00 162.9 [lb_av] [facility] temperature 2022-05-05 10:30:00 96.5 [degF] [facility] bmi 2022-05-05 10:30:00 28.85 kg/m2 [facility] oximetry 2022-05-05 10:30:00 99 % [facility] respiratory rate 2022-05-05 10:30:00 18 /min Comm on [facility] blood pressure 2022-05-05 10:30:00 128 mm[Hg] Common [facility] - systolic [facility] blood pressure 2022-05-05 10:30:00 65 mm[Hg] Common [facility] - diastolic [facility] height 2022-02-02 10:10:00 63 [in_i] Common [facility] weight 2022-02-02 10:10:00 161.2 [lb_av] [facility] temperature 2022-02-02 10:10:00 97.4 [degF] Common [facility] bmi 2022-02-02 10:10:00 28.55 kg/m2 Common [facility] oximetry 2022-02-02 10:10:00 98 % Common [facility] respiratory rate 2022-02-02 10:10:00 18 /min Comm on [facility] blood pressure 2022-02-02 10:10:00 135 mm[Hg] Common [facility] - systolic [facility] blood pressure 2022-02-02 10:10:00 78 mm[Hg] Common [facility] - diastolic [facility] height 2021-10-26 08:40:00 63 [in_i] Common [facility] weight 2021-10-26 08:40:00 162.6 [lb_av] [facility] temperature 2021-10-26 08:40:00 97.2 [degF] Common [facility] bmi 2021-10-26 08:40:00 28.8 kg/m2 Common [facility] oximetry 2021-10-26 08:40:00 100 % Common [facility] respiratory rate 2021-10-26 08:40:00 18 /min Comm on [facility] blood pressure 2021-10-26 08:40:00 133 mm[Hg] Common [facility] systolic [facility] blood pressure 2021-10-26 08:40:00 63 mm[Hg] Common [facility] diastolic [facility] height 2021-07-27 08:20:00 63 [in_i] [facility] weight 2021-07-27 08:20:00 161.4 [lb_av] [facility] temperature 2021-07-27 08:20:00 97.3 [degF] [facility] bmi 2021-07-27 08:20:00 28.59 kg/m2 [facility] oximetry 2021-07-27 08:20:00 100 % Common [facility] respiratory rate 2021-07-27 08:20:00 18 /min Comm on [facility] blood pressure 2021-07-27 08:20:00 131 mm[Hg] Common [facility] systolic [facility] blood pressure 2021-07-27 08:20:00 80 mm[Hg] Common [facility] diastolic [facility] Procedures Procedure Date / Time Performed Performing Clinician [facility] HOME HEALTH - OTHER 2019-09-17 05:01:00 Doctor Unassigned, No [facility] [place] [facility] - OTHER 2019-09-06 05:01:00 Doctor Unassigned, No [facility] [place] [facility] HOME HEALTH - OTHER 2019-08-14 06:01:00 Doctor Unassigned, No [facility] [place] [facility] Encounters Start End Encounter Admission Attending Care Care Encounter Source Date/Time Date/Time Type Type Clinicians Facility Department ID 2022-05-04 Outpatient Arroyo, STLMLC STLMLC [id number] Common 08:18:00 Rik [facility] 2022-04-01 Outpatient Arroyo, STLMLC STLMLC [id number] Common 09:32:08 Rik [id number] [facility] 2021-07-08 Outpatient Arroyo, STLMLC STLMLC [id number] Common 14:12:28 Rik [id number] [facility] 2021-07-08 Outpatient Arroyo, STLMLC STLMLC [id number] Common 13:37:39 Rik [id number] [facility] 2021-07-08 Outpatient Arroyo, STLMLC STLMLC [id number] Common 13:01:06 Rik 57058 [facility] 2021-07-08 Outpatient Arroyo, STLMLC STLMLC [id number] Common 12:01:19 Rik 63859 [facility] 2021-07-08 Outpatient Arroyo, STLMLC STLMLC [id number] Common 11:59:22 Rik 68845 [facility] 2021-07-08 Outpatient Arroyo, STLMLC STLMLC [id number] Common 11:46:26 Rik 92188 [facility] 2021-07-08 Outpatient Arroyo, STLMLC STLMLC [id number] Common 11:21:51 Rik [id number] [facility] 2021-07-08 Outpatient Arroyo, STLMLC STLMLC [id number] Common 11:21:28 Rik [id number] [facility] 2021-07-08 Outpatient Arroyo, STLMLC STLMLC [id number] Common 11:16:44 Rik 71455 [facility] 2021-07-08 Outpatient Arroyo, STLMLC STLMLC [id number] Common 11:02:45 [facility] 19904 [facility] 2022-07-20 2022-07-20 Outpatient SADIA Murdock, HCAPM RADI [id number] [facility] 09:00:00 09:00:00 Amanda Gracia [facility] 2022-05-05 2022-05-05 OFFICE STLMLC STLMLC [id number] Co mmon 00:00:00 00:00:00 VISIT [facility] PT - CHI LEVEL 4 [facility] 2022-02-02 2022-02-02 OFFICE STLMLC STLMLC [id number] Co mmon 00:00:00 00:00:00 VISIT [facility] PT - CHI LEVEL 4 [facility] 2022-01-25 2022-01-25 (TEL) STLMLC STLMLC [id number] Co mmon 00:00:00 00:00:00 [facility] 2022-01-20 2022-01-20 (TEL) STLMLC STLMLC [id number] Co mmon 00:00:00 00:00:00 [facility] 2022-01-04 2022-01-04 Outpatient DMG DMG [id number] [facility] 12:00:00 12:00:00 [id number] [facility] 2021-10-26 2021-10-26 OFFICE STLMLC STLMLC [id number] Co mmon 00:00:00 00:00:00 VISIT [facility] PT - CHI LEVEL 4 [facility] 2021-09-02 2021-09-02 (TEL) STLMLC STLMLC [id number] Co mmon 00:00:00 00:00:00 [facility] 2021-09-02 2021-09-02 (TEL) STLMLC STLMLC [id number] Co mmon 00:00:00 00:00:00 [facility] 2021-07-31 2021-07-31 (TEL) STLMLC STLMLC [id number] Co mmon 00:00:00 00:00:00 [facility] 2021-07-27 2021-07-27 OFFICE STLMLC STLMLC [id number] Co mmon 00:00:00 00:00:00 VISIT [facility] LEVEL 4 [facility] 2021-01-23 2021-01-23 Outpatient STLMLC STLMLC [id number] Common 00:00:00 00:00:00 [facility] 2020-10-20 2020-10-20 Outpatient STLMLC STLMLC [id number] Common 00:00:00 00:00:00 [facility] 2020-08-13 2020-08-13 Outpatient STLMLC STLMLC [id number] Common 00:00:00 00:00:00 [facility] 2020-07-21 2020-07-21 Outpatient STLMLC STLMLC [id number] Common 00:00:00 00:00:00 [facility] 2020-06-13 2020-06-13 Outpatient STLMLC STLMLC [id number] Common 00:00:00 00:00:00 [facility] 2020-06-03 2020-06-03 Outpatient STLMLC STLMLC [id number] Common 00:00:00 00:00:00 [facility] 2020-05-19 2020-05-19 Outpatient STLMLC STLMLC [id number] Common 00:00:00 00:00:00 [facility] 2020-04-28 2020-04-28 Outpatient STLMLC STLMLC [id number] Common 00:00:00 00:00:00 [facility] 2020-04-11 2020-04-11 Outpatient STLMLC STLMLC [id number] Common 00:00:00 00:00:00 [facility] 2020-04-09 2020-04-09 Outpatient STLMLC STLMLC [id number] Common 00:00:00 00:00:00 [facility] 2020-03-28 2020-03-28 Outpatient STLMLC STLMLC [id number] Common 00:00:00 00:00:00 [facility] 2020-01-10 2020-01-10 [facility] [id number] Common 14:00:00 14:00:00 [place] [address] [facility] 2019-10-25 2019-10-25 Out[facility] [id number] Common 10:00:00 10:00:00 [place] [address] [facility] 2019-10-12 2019-10-12 Out[facility] [id number] Common 10:27:00 10:27:00 [place] [address] [facility] 2019-10-11 2019-10-11 Outpatient [facility] [id number] Common 08:00:00 08:00:00 [place] [address] [facility] 2019-09-18 2019-09-18 Out[facility] [id number] Common 10:15:00 10:15:00 [place] [address] [facility] 2019-09-18 2019-09-18 Outpatient [facility] [id number] Univers 00:00:00 00:00:00 ity of [facility] 2019-09-17 2019-09-17 Outpatient [facility] [id number] Common 11:26:00 11:26:00 [address] [place] [address] [facility] 2019-09-17 2019-09-17 Outpatient [facility] [id number] Univers 00:00:00 00:00:00 ity of [facility] 2019-09-17 2019-09-17 Orders Doctor CHAVEZ [id number] 00:00:00 00:00:00 Only Unassigned, ARPIT [id number] [place] [id number] 2019-09-17 2019-09-17 Orders Doctor CHAVEZ [id number] Univers 00:00:00 00:00:00 Only Unassigned, ARPIT [id number] ity of [place] [facility]OSP[facility] [id number] Ciro as [phone] [address] 2019-09-11 2019-09-11 Outpatient [facility] [id number] Univers 00:00:00 00:00:00 ity of [facility] 2019-09-06 2019-09-06 Outpatient [facility] [id number] Univers 00:00:00 00:00:[address] [facility] 2019-09-06 2019-09-06 Orders Doctor CHAVEZ [id number] 00:00:00 00:00:00 Only Unassigned, ARPIT [id number] [facility] [id number] 2019-09-06 2019-09-06 Orders Doctor CHAVEZ [id number] Univers 00:00:00 00:00:00 Only Unassigned, ARPIT [id number] ity of [place]ie [facility] [id number] Ciro as [phone] [address] 2019-08-31 2019-08-31 Outpatient [facility] [id number] Common 15:14:00 15:14:00 [employer] [facility] it [facility] 2019-08-14 2019-08-14 Orders Doctor CHAVEZ [id number] 00:00:00 00:00:00 Only Unassigned, ARPIT [id number] [place] [facility] [id number] 2019-08-14 2019-08-14 Orders Doctor BYRNE [id number] Univers 00:00:00 00:00:00 Only Unassigned, ARPIT [id number] ity of [place] [facility] [id number] Ciro as [phone] [address] 2019-07-10 2019-07-10 Outpatient [facility] [id number] Common 08:00:00 08:00:00 [employer] [facility] it [facility] 2019-04-30 2019-04-30 Outpatient [facility] [id number] Common 14:30:00 14:30:00 [employer] [facility] it [facility] 2019-04-09 2019-04-09 Outpatient [facility] [id number] Common 14:45:00 14:45:[address] [facility] 2018-12-29 2018-12-29 Outpatient Rylan Rodney [id number] Common 10:00:00 10:00:00 [employer] [address] [facility] Results Test Description Test Time Test Comments [...] = MDIFF) NO DIFF/SCN CRITERIA CBC W/AUTO [id number] 10:58:00 Test Item Value Reference Range Interpretation Comments WHITE BLOOD CELL TEST NOT 3.5-11.0 N Previously (test code = WBC) PERFORMED K/mm3 reporte d result: 5.0 K/ve7Gjgprr by: [id number] on 07/20/22:1050~~ ~~ ~~~~~~~~~~~~~~~ ~~ ~~~~~~~~~~~~~~~ ~~ ~~ This i s a CORRECTED REPORT RED BLOOD CELL (test TEST NOT 4.70-6.10 N Previou sly code = RBC) PERFORMED M/mm3 reported res ult: 4.90 M/al4Amlzj d by: [id number] on 07/20/22:1052~~ ~~ ~~~~~~~~~~~~~~~ ~~ ~~~~~~~~~~~~~~~ ~~ ~~ This i s a CORRECTED REPORT HEMOGLOBIN (test TEST NOT 10.4-14.9 N Previously code = HGB) PERFORMED G/DL reported resu lt: 14.7 G/DLEdited by: [id number] on 07/20/22:1052~~ ~~ ~~~~~~~~~~~~~~~ ~~ ~~~~~~~~~~~~~~~ ~~ ~~ This i s a CORRECTED REPORT HEMATOCRIT (test TEST NOT 31.5-44.1 N Previously code = HCT) PERFORMED % reported result : 44.1 %Edited by : [id number] on 07/20/22:1053~~ ~~ ~~~~~~~~~~~~~~~ ~~ ~~~~~~~~~~~~~~~ ~~ ~~ This i s a CORRECTED REPORT MEAN CELL VOLUME TEST NOT 84.5-98.6 N Previously (test code = MCV) PERFORMED Fl reported r esult: 90.0 FlEdited b y: [id number] on 07/20/22:1053~~ ~~ ~~~~~~~~~~~~~~~ ~~ ~~~~~~~~~~~~~~~ ~~ ~~ This i s a CORRECTED REPORT MEAN CELL HGB (test TEST NOT 27.0-34.2 N Previous ly code = MCH) PERFORMED pg reported result : 30.0 pgEdited b y: [id number] on 07/20/22:1053 ~~~~~~~~~~~~~~~ ~~ ~~~~~~~~~~~~~~~ ~~ ~~~~~~ Th is is a CORRECTED REPORT MEAN CELL HGB TEST NOT 31.5-34.0 N Previously CONCETRATION (test PERFORMED G/DL reporte d result: code = MCHC) 33.3 G/DLEdited by: [id number] on 07/20/22:1053 ~~~~~~~~~~~~~~~ ~~ ~~~~~~~~~~~~~~~ ~~ ~~~~~~ Th is is a CORRECTED REPORT RED CELL TEST NOT 11.5-14.5 N Previously DISTRIBUTION WIDTH PERFORMED SD reported result: (test code = RDW) 13.2 SDEdi raeann by: [id number] on 02/07/23:1053~~ ~~ ~~~~~~~~~~~~~~~ ~~ ~~~~~~~~~~~~~~~ ~~ ~~ This i s a CORRECTED REPORT PLATELET COUNT (test TEST NOT 150-450 N Previou sly code = PLT) PERFORMED K/mm3 reported res ult: 179 K/[id number] by: [id number] on 07/20/22:1054~~ ~~ ~~~~~~~~~~~~~~~ ~~ ~~~~~~~~~~~~~~~ ~~ ~~ This i s a CORRECTED REPORT MEAN PLATELET VOLUME TEST NOT 7.0-10.5 N Previou sly (test code = MPV) PERFORMED fL reported r esult: 9.90 fLEdited b y: [id number] on 07/20/22:1054~~ ~~ ~~~~~~~~~~~~~~~ ~~ ~~~~~~~~~~~~~~~ ~~ ~~ This i s a CORRECTED REPORT NEUTROPHIL % (test TEST NOT 40-76 N Previousl y code = NT%) PERFORMED % reported result : 53.3 %Edited by : [id number] on 07/20/22:1054~~ ~~ ~~~~~~~~~~~~~~~ ~~ ~~~~~~~~~~~~~~~ ~~ ~~ This i s a CORRECTED REPORT IMMATURE GRANULOCYTE TEST NOT 0.0-5.0 N Previou sly % (test code = IG%) PERFORMED % reported result: 0.2 %Edited by: [id number] on 07/20/22:1054~~ ~~ ~~~~~~~~~~~~~~~ ~~ ~~~~~~~~~~~~~~~ ~~ ~~ This i s a CORRECTED REPORT LYMPHOCYTE % (test TEST NOT 20.5-51.1 N Previousl y code = LY%) PERFORMED % reported result : 27.9 %Edited by : [id number] on 07/20/22:1055~~ ~~ ~~~~~~~~~~~~~~~ ~~ ~~~~~~~~~~~~~~~ ~~ ~~ This i s a CORRECTED REPORT MONOCYTE % (test TEST NOT 1.7-9.3 N Previously code = MO%) PERFORMED % reported result : 9.0 %Edited by: [id number] on 07/20/22:1055~~ ~~ ~~~~~~~~~~~~~~~ ~~ ~~~~~~~~~~~~~~~ ~~ ~~ This i s a CORRECTED REPORT EOSINOPHIL % (test TEST NOT 0.0-6.0 H Previousl y code = EO%) PERFORMED % reported result : 8.4 %Edited by: [id number] on 07/20/22:1055~~ ~~ ~~~~~~~~~~~~~~~ ~~ ~~~~~~~~~~~~~~~ ~~ ~~ This i s a CORRECTED REPORT BASOPHIL % (test TEST NOT 0.0-2.0 N Previously code = BA%) PERFORMED % reported result : 1.2 %Edited by: [id number] on 07/20/22:1055~~ ~~ ~~~~~~~~~~~~~~~ ~~ ~~~~~~~~~~~~~~~ ~~ ~~ This i s a CORRECTED REPORT NUCLEATED RBC % TEST NOT 0.0-1.0 N Previously (test code = NRBC%) PERFORMED reported result: /100WBC% 0.0 /100WBC%Edited by: [id number] on 07/20/22:1055~~ ~~ ~~~~~~~~~~~~~~~ ~~ ~~~~~~~~~~~~~~~ ~~ ~~ This i s a CORRECTED REPORT NEUTROPHIL # (test TEST NOT 1.8-7.6 N Previousl y code = NT#) PERFORMED K/mm3 reported res ult: 2.7 K/mb3Zgpwak by: [id number] on 07/20/22:1056~~ ~~ ~~~~~~~~~~~~~~~ ~~ ~~~~~~~~~~~~~~~ ~~ ~~ This i s a CORRECTED REPORT IMMATURE GRANULOCYTE TEST NOT 0.00-0.03 N Previou sly # (test code = IG#) PERFORMED x10 reporte d result: 3/uL 0.01 x10\S\3/uLEdite d by: [id number] on 07/20/22:1056~~ ~~ ~~~~~~~~~~~~~~~ ~~ ~~~~~~~~~~~~~~~ ~~ ~~ This i s a CORRECTED REPORT LYMPHOCYTE # (test TEST NOT 0.6-3.2 N Previousl y code = LY#) PERFORMED K/mm3 reported res ult: 1.4 K/oi5Mtdffb by: [id number] on 07/20/22:1056~~ ~~ ~~~~~~~~~~~~~~~ ~~ ~~~~~~~~~~~~~~~ ~~ ~~ This i s a CORRECTED REPORT MONOCYTE # (test TEST NOT 0.3-1.1 N Previously code = MO#) PERFORMED K/mm3 reported res ult: 0.5 K/bu2Zxnklo by: [id number] on 07/20/22:1056~~ ~~ ~~~~~~~~~~~~~~~ ~~ ~~~~~~~~~~~~~~~ ~~ ~~ This i s a CORRECTED REPORT EOSINOPHIL # (test TEST NOT 0.0-0.4 N Previousl y code = EO#) PERFORMED K/mm3 reported res ult: 0.4 K/ks4Zcrawz by: [id number] on 07/20/22:1056~~ ~~ ~~~~~~~~~~~~~~~ ~~ ~~~~~~~~~~~~~~~ ~~ ~~ This i s a CORRECTED REPORT BASOPHIL # (test TEST NOT 0.0-0.1 N Previously code = BA#) PERFORMED K/mm3 reported res ult: 0.1 K/nh5Cavsnr by: [id number] on 07/20/22:1057~~ ~~ ~~~~~~~~~~~~~~~ ~~ ~~~~~~~~~~~~~~~ ~~ ~~ This i s a CORRECTED REPORT NUCLEATED RBC # TEST NOT 0.0-0.1 N Previously (test code = NRBC#) PERFORMED K/mm3 repor raeann result: 0.0 K/yp9Vaburw by: [id number] on 07/20/22:1057~~ ~~ ~~~~~~~~~~~~~~~ ~~ ~~~~~~~~~~~~~~~ ~~ ~~ This i s a CORRECTED REPORT MANUAL DIFF REQUIRED NO DIFF/SCN CRITERIA (test code = MDIFF) PROTHROMBIN [id number] 10:00:00 Test Item Value Reference Range Interpretation [...]
[2022-10-28 15:26] LABS: Absolute Lymphocytes (CBC) 1.2 K/uL (0.7-4.9); Hematocrit 21.6 % (36.0-45.0); MCV 88.4 fL (80-100); MPV 8.2 fL (7.6-11.3); RBC Red Blood Cell Count 2.45 M/uL (3.86-4.86)
[2022-10-28 16:00] LABS: Albumin 3.1 g/dL (3.4-5.0); Bilirubin Total 0.3 mg/dL (0.2-1.0); Potassium 3.4 mEq/L (3.5-5.1); Protein, Total 6.9 g/dL (6.4-8.2)
--- NOTE | 2022-10-28 16:20 | ER ---
Nurse's Notes [facility] Name: Glen Carlisle Age: 67 yrs Sex: Female : 1955 Arrival Date: 10/28/2022 Time: 14:34 Bed 5 Private MD: Diagnosis: End stage renal disease;Anemia in chronic kidney disease Presentation: 10/28 14:46 Chief complaint: Patient states: sent to ED by DR Josue due to Hbg of 6.8, denies CP, vg1 SOB, h/a, or N/V. Coronavirus screen: Vaccine status: Patient reports being unvaccinated. Client denies travel out of the [place] in the last 14 days. Ebola Screen: Patient negative for fever greater than or equal to 101.5 degrees Fahrenheit, and additional compatible Ebola Virus Disease symptoms Patient denies exposure to infectious person. Patient denies travel to an Ebola-affected area in the 21 days before illness onset. Initial Sepsis Screen: Does the patient meet any 2 criteria? No. Patient's initial sepsis screen is negative. Does the patient have a suspected source of infection? No. Patient's initial sepsis screen is negative. Risk Assessment: Do you want to hurt yourself or someone else? Patient reports no desire to harm self or others. Onset of symptoms was October 28, 2022. 14:46 Method Of Arrival: Ambulatory vg1 14:46 Acuity: DAYSI 3 vg1 Triage Assessment: 14:48 General: Appears in no apparent distress. comfortable, Behavior is calm, cooperative. vg1 Pain: Denies pain. Cardiovascular: Denies chest pain, Patient's skin is warm and dry. Respiratory: Airway is patent Respiratory effort is even, unlabored, Denies shortness of breath. Historical: - Allergies: 14:48 No Known Allergies; vg1 - Home Meds: 14:48 Glipizide Oral 50 mg daily [Active]; Hydralazine Oral 100 mg twice a day [Active]; vg1 clopidogrel 75 mg oral tablet [Active]; atorvastatin 40 mg daily [Active]; amlodipine oral 10 mg daily [Active]; carvedilol 6.25 mg twice a day [Active]; Sodium Bicarbonate Oral 650 mg twice a day [Active]; Vitamin D Oral every Tuesday [Active]; - PMHx: 14:48 diabetes mellitus; Hypertensive disorder; Hypercholesterolemia; vg1 - Immunization history:: Client reports having NOT received the Covid vaccine. - Social history:: Smoking status: Patient/guardian denies using tobacco, the patient reports quitting approximately 6 years ago. - Family history:: not pertinent. Screenin:34 [facility] ED Fall Risk Assessment (Adult) History of falling in the last 3 months, ph including since admission No falls in past 3 months (0 pts) Confusion or Disorientation No (0 pts) Intoxicated or Sedated No (0 pts) Impaired Gait No (0 pts) Mobility Assist Device Used No (0 pt) Altered Elimination No (0 pt) Score/Fall Risk Level 0 - 2 = Low Risk Oriented to surroundings, Maintained a safe environment, Hourly rounding (assess needs \T\ fall precautionary measures) done. Abuse screen: Denies threats or abuse. Denies injuries from another. Nutritional screening: No deficits noted. Tuberculosis screening: No symptoms or risk factors identified. Assessment: 16:00 General: Appears in no apparent distress. comfortable, Behavior is calm, cooperative, ph appropriate for age. Pain: Denies pain. Cardiovascular: Patient's skin is warm and dry. Respiratory: Airway is patent Respiratory effort is even, unlabored, Denies shortness of breath. GI: No signs and/or symptoms were reported involving the gastrointestinal system. Derm: Skin is pink, warm \T\ dry. Musculoskeletal: Circulation, motion, and sensation intact. Range of motion: intact in all extremities. 17:00 Reassessment: Patient appears in no apparent distress at this time. Patient and/or ph family updated on plan of care and expected duration. Pain level reassessed. Patient is alert, oriented x 3, equal unlabored respirations, skin warm/dry/pink. 18:00 Reassessment: Patient appears in no apparent distress at this time. Patient and/or ph family updated on plan of care and expected duration. Pain level reassessed. Patient is alert, oriented x 3, equal unlabored respirations, skin warm/dry/pink. Vital Signs: 14:46 BP 160 / 68; Pulse 69; Resp 16; Temp 98.7(TE); Pulse Ox 100% on R/A; Weight 70.31 kg; vg1 Height 5 ft. 3 in. ; Pain 0/10; 16:30 BP 166 / 70; Pulse 67; Resp 18; Pulse Ox 98% on R/A; ph 17:49 BP 165 / 79; Pulse 68; Resp 18; Temp 98; Pulse Ox 100% on R/A; ph 14:46 Body Mass Index 27.46 (70.31 kg, 160.02 cm) vg1 14:46 Pain Scale: Adult vg1 ED Course: 14:35 Patient arrived in ED. ts1 14:36 Bay Tomlin MD is Attending Physician. rt 14:48 Triage completed. vg1 14:48 Arm band placed on. vg1 14:54 Fani Butts RN is Primary Nurse. ph 15:30 Initial lab(s) drawn, by ED staff, sent to lab. Inserted saline lock: 20 gauge in right ph antecubital area, using aseptic technique. Blood collected. 16:19 Elias Trimble MD is Hospitalizing Provider. rt 17:00 Consent for blood and/or blood product transfusion explained by physician, signed by ph patient. 17:34 Patient has correct armband on for positive identification. Bed in low position. Call light in reach. Side rails up X 1. 17:50 No provider procedures requiring assistance completed. Patient admitted, IV remains in ph place. Administered Medications: No medications were administered Medication: 17:34 VIS not applicable for this client. ph Outcome: 16:19 Decision to Hospitalize by Provider. rt 18:17 Admitted to Med/surg accompanied by tech, family with patient, via wheelchair, room ph 208, with chart. 18:17 Condition: good 18:17 Instructed on the need for admit. 18:18 Patient left the ED. ph Signatures: Fani Butts RN RN ph Shanta Mcdaniel RN RN vg1 Bay Tomlin MD MD rt Rukhsana Tidwell PAS PAS ts1 Corrections: (The following items were deleted from the chart) 14:50 14:48 Home Meds: Plavix Oral 75 mg daily; vg1 vg1 17:34 17:32 BP 115 / 71; Pulse 69bpm; Resp 18bpm; Pulse Ox 97% RA; Temp 97.5F; ph ph
--- NOTE | 2022-10-28 16:20 | EDPHYS ---
Physician Documentation [facility] Name: Glen Carlisle Age: 67 yrs Sex: Female : 1955 Arrival Date: 10/28/2022 Time: 14:34 Bed 5 Private MD: ED Physician Bay Tomlin HPI: 10/28 15:17 This 67 yrs old Female presents to ER via Ambulatory with complaints of BLOOD rt TRANSFUSION. 15:17 Patient presents to the ED at the request of her medical staff physician. The patient has rt end-stage renal disease, is not yet been initiated on dialysis. She had outpatient labs that showed significant anemia as well as worsening of renal function. Patient was sent to the ED to get 2 units of PRBCs as well as to be admitted for initiation of dialysis. The patient states that she feels well, denies any complaints at this time. No other aggravating or alleviating factors.. Historical: - Allergies: 14:48 No Known Allergies; vg1 - Home Meds: 14:48 Glipizide Oral 50 mg daily [Active]; Hydralazine Oral 100 mg twice a day [Active]; vg1 clopidogrel 75 mg oral tablet [Active]; atorvastatin 40 mg daily [Active]; amlodipine oral 10 mg daily [Active]; carvedilol 6.25 mg twice a day [Active]; Sodium Bicarbonate Oral 650 mg twice a day [Active]; Vitamin D Oral every Tuesday [Active]; - PMHx: 14:48 diabetes mellitus; Hypertensive disorder; Hypercholesterolemia; vg1 - Immunization history:: Client reports having NOT received the Covid vaccine. - Social history:: Smoking status: Patient/guardian denies using tobacco, the patient reports quitting approximately 6 years ago. - Family history:: not pertinent. ROS: 15:17 Constitutional: Negative for fever, chills, and weight loss, Cardiovascular: Negative rt for chest pain, palpitations, and edema, Respiratory: Negative for shortness of breath, cough, wheezing, and pleuritic chest pain, Abdomen/GI: Negative for abdominal pain, nausea, vomiting, diarrhea, and constipation, MS/Extremity: Negative for injury and deformity, Skin: Negative for injury, rash, and discoloration, Neuro: Negative for headache, weakness, numbness, tingling, and seizure, Psych: Negative for depression, anxiety, suicide ideation, homicidal ideation, and hallucinations. Exam: 15:17 Constitutional: This is a well developed, well nourished patient who is awake, alert, rt and in no acute distress. Head/Face: Normocephalic, atraumatic. Chest/axilla: Normal chest wall appearance and motion. Nontender with no deformity. No lesions are appreciated. Cardiovascular: Regular rate and rhythm with a normal S1 and S2. No gallops, murmurs, or rubs. Normal PMI, no JVD. No pulse deficits. Respiratory: Lungs have equal breath sounds bilaterally, clear to auscultation and percussion. No rales, rhonchi or wheezes noted. No increased work of breathing, no retractions or nasal flaring. Abdomen/GI: Soft, non-tender, with normal bowel sounds. No distension or tympany. No guarding or rebound. No evidence of tenderness throughout. Skin: Warm, dry with normal turgor. Normal color with no rashes, no lesions, and no evidence of cellulitis. MS/ Extremity: Pulses equal, no cyanosis. Neurovascular intact. Full, normal range of motion. Neuro: Awake and alert, GCS 15, oriented to person, place, time, and situation. Cranial nerves II-XII grossly intact. Motor strength 5/5 in all extremities. Sensory grossly intact. Cerebellar exam normal. Normal gait. Psych: Awake, alert, with orientation to person, place and time. Behavior, mood, and affect are within normal limits. Vital Signs: 14:46 BP 160 / 68; Pulse 69; Resp 16; Temp 98.7(TE); Pulse Ox 100% on R/A; Weight 70.31 kg; vg1 Height 5 ft. 3 in. ; Pain 0/10; 16:30 BP 166 / 70; Pulse 67; Resp 18; Pulse Ox 98% on R/A; ph 17:49 BP 165 / 79; Pulse 68; Resp 18; Temp 98; Pulse Ox 100% on R/A; ph 14:46 Body Mass Index 27.46 (70.31 kg, 160.02 cm) vg1 14:46 Pain Scale: Adult vg1 MDM: 14:58 Patient medically screened. rt 16:33 Differential Diagnosis Anemia, CKD, hyperkalemia. Data reviewed: vital signs, lab test rt result(s). Consideration of Admission/Observation Patient was admitted/placed on observation. Management of patient was discussed with the following: Hospitalist: Agrees to admit. Pens And Pencils Dipper: Discussed with the patient's medical staff physician who wants 2 units of PRBCs and patient to be admitted for dialysis initiation. Care significantly affected by the following chronic conditions: Chronic Kidney Disease. Counseling: I had a detailed discussion with the patient and/or guardian regarding: the historical points, exam findings, and any diagnostic results supporting the discharge/admit diagnosis, lab results, the need for further work-up and treatment in the hospital. 10/28 15:05 Order name: CBC with Diff; Complete Time: 15:53 rt 10/28 15:05 Order name: CMP; Complete Time: 16:15 rt 10/28 15:05 Order name: Type And Screen rt 10/28 16:38 Order name: Packed RBCs (Additional Unit) EDNH 10/28 16:47 Order name: Acute Hepatitis Panel ED[facility] 10/28 16:47 Order name: CBC with Automated Diff EDMS 10/28 16:47 Order name: CBC with Automated Diff EDMS 10/28 16:47 Order name: Comprehensive Metabolic Panel EDMS 10/28 16:47 Order name: Comprehensive Metabolic Panel EDMS 10/28 16:47 Order name: Protime (+INR) EDMS 10/28 16:47 Order name: Protime (+INR) EDMS 10/28 16:47 Order name: PTT, Activated Partial Thromb EDMS 10/28 16:47 Order name: PTT, Activated Partial Thromb EDMS 10/28 16:47 Order name: Case Management Consult EDMS 10/28 16:47 Order name: CONS Physician Consult EDMS 10/28 16:47 Order name: CONS Physician Consult EDMS 10/28 16:47 Order name: Renal EDMS 10/28 16:48 Order name: NPO EDMS Administered Medications: No medications were administered Disposition Summary: 10/28/22 16:19 Hospitalization Ordered Hospitalization Status: Observation rt Provider: Elias Trimble rt Location: Telemetry/MedSurg (observation) rt Condition: Stable rt Problem: an ongoing problem rt Symptoms: are unchanged rt Bed/Room Type: Standard rt Room Assignment: 208(10/28/22 17:20) em1 Diagnosis - End stage renal disease rt - Anemia in chronic kidney disease rt Forms: - Medication Reconciliation Form rt - SBAR form rt Signatures: Dispatcher [employer] Sumit Wilkins em1 Shanta Mcdaniel RN RN vg1 Bay Tomlin MD MD rt Corrections: (The following items were deleted from the chart) 14:50 14:48 Home Meds: Plavix Oral 75 mg daily; vg1 vg1 17:20 16:19 rt em1
[2022-10-28] MEDS ORDERED: ACETAMINOPHEN 500 MG TAB PO PRN (16:37)
[2022-10-28] MEDS ORDERED: MORPHINE 2 MG/ML SYR IV PRN (16:37)
[2022-10-28] MEDS ORDERED: ONDANSETRON 4 MG/2 ML VIAL IV PRN (16:37)
[2022-10-28] MEDS ORDERED: NA CHLORIDE 0.9% 250 ML ONE ×2 (16:42→22:05)
--- NOTE | 2022-10-28 16:47 | P.HP ---
Certification for Inpatient Patient admitted to: Inpatient With expected LOS: >2 Midnights Patient will require the following post-hospital care: None Practitioner: I am a practitioner with admitting privileges, knowledge of patient current condition, hospital course, and medical plan of care. Services: Services provided to patient in accordance with Admission requirements found in Title 42 Section 412.3 of the Code of Federal Regulations Patient History Date of Service: 10/28/22 Reason for admission: CKD progressed to ESRD; anemia History of Present Illness: Patient is a 67yo who was admitted to [facility] with worsening renal failure. Patient was felt to have ESRD. Patient has had chronic kidney disease for quite a while. Patient renal function has been gradually worsening. 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 Patient was found to have elevated creatinine and after speaking with nephrology, decision was made to proceed with hemodialysis. Spoke with general surgery and hemodialysis catheter will be placed tomorrow. We will arrange for patient hemodialysis. Chair time will be pending. Allergies No Known Allergies Allergy (Verified 06/26/17 19:52) Home Medications: Atorvastatin Calcium 40 mg PO BEDTIME 08/28/19 Clopidogrel Bisulfate [Plavix*] 75 mg PO DAILY 08/28/19 Amlodipine [Norvasc] 10 mg PO BEDTIME 10/28/22 Cholecalciferol (Vitamin D3) [Vitamin D3] 2,000 units PO DAILY 10/28/22 Hydralazine HCl 100 mg PO BID 10/28/22 Na Bicarb Tab [Sodium Bicarb 325 MG Tab*] 650 mg PO BID 10/28/22 Sevelamer Carbonate 800 mg PO TIDWM 10/28/22 carvediloL [Carvedilol] 6.25 mg PO BID 10/28/22 glipiZIDE [Glipizide] 50 mg PO DAILY 10/28/22 - Past Medical/Surgical History Diabetic: Yes -: HTN -: DM -: Chronic kidney disease -: C section -: tubal ligation -: Right foot surgery-2017 - Family History Mother Medical History: Cancer Sister Medical History: Cancer Notes: RA Brother Medical History: Liver disease Father Medical History: Cancer - Social History Smoking Status: Former smoker Alcohol use: No CD- Drugs: No Caffeine use: Yes Review of Systems 10-point ROS is otherwise unremarkable Physical Examination - Vital Signs Temperature: 98 F Blood Pressure: 160/80 Pulse: 88 Respirations: 18 Pulse Ox (%): 95 - Physical Exam General: Alert, In no apparent distress, Oriented x3 HEENT: Atraumatic, PERRLA, Mucous membr. moist/pink, EOMI, Sclerae nonicteric Neck: Supple, 2+ carotid pulse no bruit, No LAD, Without JVD or thyroid abnormality Respiratory: Clear to auscultation bilaterally, Normal air movement Cardiovascular: Regular rate/rhythm, Normal S1 S2, No murmurs Gastrointestinal: Normal bowel sounds, Soft and benign, Non-distended, No tenderness Musculoskeletal: No clubbing, No swelling, No tenderness Integumentary: No rashes Neurological: Normal gait, Normal speech, Normal strength at 5/5 x4 extr, Normal tone, Normal affect Lymphatics: No axilla or inguinal lymphadenopathy - Studies Laboratory Data (last 24 hrs) 10/28/22 15:09: Sodium 138, Potassium 3.4 L, BUN 52 H, Creatinine 6.24 H, Glucose 126 H, Total Bilirubin 0.3, AST 17, ALT 16, Alkaline Phosphatase 94 10/28/22 15:09: WBC 5.50, Hgb 7.3 L, Hct 21.6 L, Plt Count 294 Assessment & Plan - Problems (Diagnosis) (1) ESRD (end stage renal disease) Current Visit: Yes Status: Acute (2) Anemia in chronic kidney disease Current Visit: Yes Status: Acute (3) Diabetes Onset Date: 06/27/17 Current Visit: No Status: Chronic Qualifiers: Diabetes mellitus type: type 2 Diabetes mellitus 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 Hemodialysis per nephrology recommendation 2. N.p.o. after midnight 3. Monitor hemodynamics closely 4. Surgery consultation for Tesio catheter placement 5. Strict BP and BS control 6. GI DVT prophylaxis Discharge Plan: Home Plan to discharge in: Greater than 2 days - Advance Directives Does patient have a Living Will: Yes Does patient have a Durable POA for Healthcare: No - Code Status/Comfort Care Code Status Assessed: Yes Code Status: Full Code Critical Care: No Time Spent Managing PTS Care (In Minutes): 45
[2022-10-28 19:29] LABS: Hepatitis B Core IgM Nonreactive (Nonreactive); Hepatitis B surface AG Interp. Nonreactive (Nonreactive); Hepatitis C Virus Ab Nonreactive (Nonreactive)
[2022-10-28] MEDS ORDERED: cloNIDine HCL 0.1 MG TAB PO ONE (21:07)
[2022-10-28 21:39] VITALS: BMI 27.4
[2022-10-29 06:15] LABS: Hematocrit 26.7 % (36.0-45.0); Lymphocytes % 21.1 % (15.3-44.8); MCV 87.8 fL (80-100); MPV 8.1 fL (7.6-11.3); RBC Red Blood Cell Count 3.04 M/uL (3.86-4.86)
[2022-10-29 06:16] LABS: Protime INR 0.96
[2022-10-29 06:30] LABS: Albumin 2.8 g/dL (3.4-5.0); Bilirubin Total 0.3 mg/dL (0.2-1.0); Potassium 3.5 mEq/L (3.5-5.1); Protein, Total 6.1 g/dL (6.4-8.2)
[2022-10-29] MEDS ORDERED: COLLAGENASE 30 GM OINTMENT TOP SCH (09:00)
[2022-10-29] MEDS: CLOPIDOGREL 75 MG TABLET PO SCH (09:00)
[2022-10-29] MEDS: HYDRALAZINE HCL 20 MG/ML VIAL IV PRN ×2 (09:43→21:44)
[2022-10-29] MEDS: MEDIHONEY 44 ML TOPICAL TUBE TOP SCH (09:44)
--- NOTE | 2022-10-29 10:06 | PREOPCON ---
Date of Consultation: 10/28/2022 Reason For Consultation: Patient needs dialysis. History Of Present Illness: Patient is a 67-year-old female, who was admitted with worsening of roger l failure. Patient is felt to have end-stage renal disease. She also has a history of anemia. Base d on her laboratory data, the behavioral instructor feels that patient should begin dialysis as soon as possib le. She is awake and alert. No sore throat, runny nose, cough, headaches, dizziness, chest pain, fe elva, or chills. Review of Systems: Otherwise, unremarkable. Past Medical History: Hypertension, diabetes, chronic kidney disease and now end-stage renal disease . Past Surgical History: , tubal ligation, right foot surgery. Allergies: NO ALLERGIES. Social History: Patient used to smoke in the past, does not anymore, and does not drink alcohol. Family History: Significant for unknown type of cancer in the sister, brother, and father. Liver di sease in her another brother. Physical Examination: Vital Signs: Stable. She is currently afebrile. General: She is awake, alert, and oriented x3. Head and Neck: No masses. Chest: Clear. Heart: S1, S2. Abdomen: Soft. Extremities: Neurovascularly intact Neuro: Nonfocal. Laboratory Data: Her H and H are 9.1 and 26.7, her platelets are 242. INR is 0.96 and her creatinin e clearance is 7 at this time. Assessment: A 67-year-old female with end-stage renal disease. Recommendations: We will place Tesio catheter. Patient understands risks, benefits, and alternative s and agrees to procedure. /MODL Voice ID: [id number] Report ID: [id number]
[2022-10-29] MEDS ORDERED: cloNIDine HCL 0.1 MG TAB PO ONE (11:09)
--- NOTE | 2022-10-29 13:45 | P.PN ---
Subjective Date of Service: 10/29/22 Subjective: No new changes, No C/O voiced, Tolerating diet Review of Systems 10-point ROS is otherwise unremarkable Physical Examination - Vital Signs Temperature: 98 F Blood Pressure: 160/80 Pulse: 88 Respirations: 18 Pulse Ox (%): 95 - Physical Exam General: Alert, In no apparent distress, Oriented x3 Respiratory: Clear to auscultation bilaterally, Normal air movement Cardiovascular: Regular rate/rhythm, Normal S1 S2, No murmurs Gastrointestinal: Normal bowel sounds, Soft and benign, Non-distended, No tenderness, No rebound, No guarding Musculoskeletal: No clubbing, No swelling, No tenderness Integumentary: No rashes Neurological: Normal speech, Normal tone, Normal affect Lymphatics: No axilla or inguinal lymphadenopathy - Studies Laboratory Data (last 24 hrs) 10/28/22 15:09: Sodium 138, Potassium 3.4 L, BUN 52 H, Creatinine 6.24 H, Glucose 126 H, Total Bilirubin 0.3, AST 17, ALT 16, Alkaline Phosphatase 94 10/28/22 15:09: WBC 5.50, Hgb 7.3 L, Hct 21.6 L, Plt Count 294 Medications List Reviewed: Yes Assessment & Plan - Problems (Diagnosis) (1) ESRD (end stage renal disease) Current Visit: Yes Status: Acute (2) Anemia in chronic kidney disease Current Visit: Yes Status: Acute (3) Diabetes Onset Date: 06/27/17 Current Visit: No Status: Chronic Qualifiers: Diabetes mellitus type: type 2 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 Hemodialysis after Tessio catheter placement 2. N.p.o. and renal diet after Tessio catheter placement 3. Monitor hemodynamics closely 4. Surgery consultation and Nephrology consultation appreciated 5. Strict BP and BS control 6. GI DVT prophylaxis Discharge Plan: Home Plan to discharge in: Greater than 2 days - Advance Directives Does patient have a Living Will: Yes Does patient have a Durable POA for Healthcare: No - Code Status/Comfort Care Code Status: Full Code Critical Care: No Time Spent Managing PTS Care (In Minutes): 33
[2022-10-29] MEDS ORDERED: NA CHLORIDE 0.9% 500 ML ONE (14:22)
[2022-10-29] MEDS ORDERED: CEFAZOLIN SODIUM 1 GM/VIAL ONE (14:27)
[2022-10-29] MEDS ORDERED: MIDAZOLAM HCL 2 MG/2 ML INJ ONE (14:35)
[2022-10-29] MEDS ORDERED: FENTANYL CITR 100 MCG/2 ML ONE (14:36)
[2022-10-29] MEDS ORDERED: NS 0.9% VIAL 10 ML ONE (14:39)
[2022-10-29] MEDS ORDERED: LIDOCAINE 1% 20 ML MDV ONE (14:40)
[2022-10-29] MEDS ORDERED: NA CHLORIDE 0.9% 100 ML ONE (14:40)
--- NOTE | 2022-10-29 14:46 | P.CNS ---
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 She reports having fatigue. GFR 7, recently was 12. She reports being diagnosed with type 2 diabbetes mellitus & hypertension about 5 years ago. She denies history of chronic NSAID use, urinary tract infection, or urolithiasis. Her GFR has declined over the past year from 35 mL/min in Jul 2021 to 12 ml/min in June 2022, & 7 ml/min on 10/21/2022. GFR on hosp adm is 7. She previously refused chronic hemodialysis initiation but is now agreeable. She is getting her permacath placed today. Allergies No Known Allergies Allergy (Verified 06/26/17 19:52) Home Medications: Atorvastatin Calcium 40 mg PO BEDTIME 08/28/19 Clopidogrel Bisulfate [Plavix*] 75 mg PO DAILY 08/28/19 Amlodipine [Norvasc] 10 mg PO BEDTIME 10/28/22 Cholecalciferol (Vitamin D3) [Vitamin D3] 2,000 units PO DAILY 10/28/22 Hydralazine HCl 100 mg PO BID 10/28/22 Na Bicarb Tab [Sodium Bicarb 325 MG Tab*] 650 mg PO BID 10/28/22 Sevelamer Carbonate 800 mg PO TIDWM 10/28/22 carvediloL [Carvedilol] 6.25 mg PO BID 10/28/22 glipiZIDE [Glipizide] 50 mg PO DAILY 10/28/22 - Past Medical/Surgical History Diabetic: Yes -: HTN -: DM -: Chronic kidney disease -: C section -: tubal ligation -: Right foot surgery-2017 - Family History Mother Medical History: Cancer Notes: ovarian Sister Medical History: Cancer Notes: RA Brother Medical History: Liver disease Father Medical History: Cancer Notes: pneumonia - Social History Smoking Status: Current every day smoker Alcohol use: No CD- Drugs: No Caffeine use: Yes Place of Residence: Home Review of Systems General: Weakness Eyes: Unremarkable ENT: Unremarkable Respiratory: Unremarkable Cardiovascular: Unremarkable Gastrointestinal: Unremarkable Genitourinary: Unremarkable Musculoskeletal: Unremarkable Neurological: Unremarkable Lymphatics: Unremarkable Physical Examination Temp Pulse Resp BP Pulse Ox 98 F 88 18 160/80 H 95 10/29/22 13:45 10/29/22 13:45 10/29/22 13:45 10/29/22 13:45 10/29/22 13:45 General: In no apparent distress HEENT: Atraumatic, Normocephalic Neck: Supple, JVD not distended Respiratory: Clear to auscultation bilaterally Cardiovascular: No rubs, No murmurs Gastrointestinal: Soft and benign, Non-distended Musculoskeletal: No clubbing, Swelling Integumentary: No warmth, No cyanosis Neurological: Normal speech, Normal tone Lymphatics: No axilla or inguinal lymphadenopathy Urinary: Other (no bladder distention) External genitalia: Deferred Rectal: Deferred Laboratory Data (last 24 hrs) 10/28/22 15:09: Sodium 138, Potassium 3.4 L, BUN 52 H, Creatinine 6.24 H, Glucose 126 H, Total Bilirubin 0.3, AST 17, ALT 16, Alkaline Phosphatase 94 10/28/22 15:09: WBC 5.50, Hgb 7.3 L, Hct 21.6 L, Plt Count 294 Conclusions/Impression: # New ESRD Permacath placement today HD initiation Tue- GFR has declined over the past year from 35 mL/min in Jul 2021 to 12 ml/min in June 2022, & 7 ml/min on 10/29/2022. Sked kidney biopsy on Tuesday to ascertain ESRD status & potentially identify e tiology of her proteinuria & why renal fxn declined fast over the past year Renal diet Refer to dietitian for renal diet education Refer to case mngt for outpt HD placement # Htn BP above goal BP meds adjusted # Anemia Received pRBC transfusion F/u iron panel Retacrit starting Tue next week # HyperPO4 Sevelamer 800 mg by mouth 3 times a day with meals # Normal anion gap metabolic acidosis secondary to renal dysfunction HD initiation as above # Nephrotic-range proteinuria She has nephrotic range proteinuria 7.3 g --> 6.1--> 8.6g, likely secondary to diabetic nephropathy Proeteinuria workup via JHONNY, RPR, HBV, HCV, HIV, SPEP, serum EDWINA, kappa & lambda serum free light chains, & random urine UPEP neg Renal bx on Tuesday as above BP control < 130/80 Atorvastatin Discontinued losartan Glycemic control # BLE edema HD as above Resume lasix home dose # PAD Was on Plavix, aspirin, and Vasculera, hold for kidney biopsy on Tuesday # Vitamin D deficiency D3 5000 IU po daily # HLD Resume atorvastatin 40 mg by mouth daily at bedtime # DM2 Mngt per primary team
[2022-10-29] MEDS: HEPARIN 5000 UNIT/ML 1 ML VIAL ONE ×2 (15:33→15:34)
[2022-10-29] MEDS ORDERED: HYDROCODONE/APAP 5/325 MG TAB PO PRN (16:05)
--- NOTE | 2022-10-29 16:24 | RAD REPORT ---
EXAM DESCRIPTION: RAD - Chest Single View - 10/29/2022 4:17 pm CLINICAL HISTORY: Status post Tesio catheter placement Chest pain. COMPARISON: <Comparisons> FINDINGS: Portable technique limits examination quality. Right-sided venous catheter has tip in the SVC. No pneumothorax is present.
--- NOTE | 2022-10-29 16:27 | RAD REPORT ---
EXAM DESCRIPTION: RAD - Fluoroscopy <1 Hour - 10/29/2022 4:21 pm CLINICAL HISTORY: Venous catheter insertion. TESSIO COMPARISON: AAA Screening dated 08/16/2022 FINDINGS: Fluoroscopic imaging is submitted from placement of a venous catheter. Details of the pro cedure not available. Fluoroscopy time: 0.1 minutes
--- NOTE | 2022-10-29 17:57 | P.OP ---
Date of Service: 10/29/22 Preop diagnosis: End-stage renal disease Postop diagnosis: Same Procedure performed: Doppler aided placement of right IJ tunneled dialysis catheter, interpretation of intraoperative fluoroscopy Surgeon: Mark Nunez MD Cathode Ray Tube Assembler: None Estimated blood loss: Minimal Specimen: None Findings: Normal anatomy Anesthesia: MAC Complications: None Drains: None Fluids and blood products: Nonapplicable Disposition: Recovery room Operative note: Dictated. CC:
[2022-10-29] MEDS: ATORVASTATIN 40 MG TAB PO SCH (21:15)
--- NOTE | 2022-10-29 22:31 | OP ---
Date of Procedure: 10/29/2022 Surgeon: Mark Nunez MD Block Feeder: None. Preoperative Diagnosis: End-stage renal disease. Postoperative Diagnosis: End-stage renal disease. Procedure: Ultrasound assisted placement of Tesio catheter and interpretation of intraoperative fluo roscopy. Estimated Blood Loss: Minimal. Specimen: None. Findings: Normal anatomy. Anesthesia: MAC. Complications: None. The patient tolerated the procedure in stable condition and was taken to recov [facility] room in good general condition. Procedure In Detail: The patient was brought to the OR and placed in supine position and MAC anesthe darvin begun. The patient was prepped and draped in the usual sterile fashion. Lidocaine 1% was infilt rated locally. Ultrasound machine used to identified the jugular vein and then an 18-gauge needle wa s used to access the right internal jugular vein. Guidewire passed. Position confirmed with fluoros copy. Counterincision was made on the right anterior chest. Tunneling device was used to tunnel the catheter between the 2 wounds. Seldinger technique used and tip of the catheter placed in the SVC u nder fluoroscopy. Catheter flushed with heparin and packed with heparin with good blood flow. Then 3-0 chromic was used to approximate subcutaneous tissue and 3-0 nylon was used to secure the tube to the chest wall. Sterile dressing applied. The patient awakened, taken to recovery room in good general condition. A chest x-ray has been ordered. /MODL Voice ID: [id number] Report ID: [id number]
[2022-10-30 03:40] LABS: Albumin 2.7 g/dL (3.4-5.0); Magnesium 2.1 mg/dL (1.6-2.4); Phosphorus 6.6 mg/dL (2.5-4.9); Potassium 3.5 mEq/L (3.5-5.1)
[2022-10-30 04:28] LABS: Hepatitis B Surface Ab - Quant < 3.10 mIU/mL (<8.0)
--- NOTE | 2022-10-30 08:31 | RAD REPORT ---
EXAM DESCRIPTION: Zac [employer] (2 Views)10/30/2022 8:23 am CLINICAL HISTORY: Rule out TB prior to hemodialysis catheter placement COMPARISON: October 29, 2022 FINDINGS: Small to moderate right pleural effusion is suspected. A small left pleural effusion Mild bibasilar atelectasis Upper lobes appear clear Heart is borderline enlarged No radiographic evidence of TB. Central venous line in place
[2022-10-30] MEDS: CLOPIDOGREL 75 MG TABLET PO SCH (08:46)
[2022-10-30] MEDS: MEDIHONEY 44 ML TOPICAL TUBE TOP SCH (08:47)
--- NOTE | 2022-10-30 08:55 | PN ---
Date of Progress Note: 10/30/2022 Subjective: Patient is awake and alert. No complaint. Objective: Vital Signs: Stable. Afebrile. Chest x-ray shows Tesio catheter to be in the proper place. Dressing is clean, dry, and intact. Assessment: Status post Tesio catheter placement. Recommendation: Management per Nephrology. Reconsult Surgery p.r.n. Patient is doing well. /MODL Voice ID: [id number] Report ID: [id number]
[2022-10-30] MEDS ORDERED: VITAMIN D 5,000 UNIT CAP PO SCH (09:00)
[2022-10-30] MEDS ORDERED: EPOETIN 4,000 UNIT/ML VIAL IV SCH (11:00)
--- NOTE | 2022-10-30 11:01 | P.PN ---
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 lbs showed GFR of 7, pt had uremic symptoms , admitted to initiate renal replacement therapy Today No overnight events Will start dialysis today Hd tomorrow again and Tuesday outpatient dialysis chair time arrangement General: Awake, NAD HEENT: AAOx3, NAD , thin Neck: Supple, no elevated JVD , Rt IJ TDC Respiratory: CTAB Cardiovascular: No rubs, No murmurs Gastrointestinal: Soft and benign, Non-distended Musculoskeletal: No clubbing Neurological: Normal tone, Sensation intact Lymphatics: No axilla or inguinal lymphadenopathy EXt; no edema A/P # ESRD HD initiation Tue-Tue-Tue Renal dose medications Renal diet Refer to dietitian for renal diet education Refer to case mngt for outpt HD placement # Htn Cont Current meds low salt diet # Anemiaof chronic disease Received pRBC transfusion F/u iron panel will start Epogen # HyperPO4 Sevelamer 800 mg by mouth 3 times a day with meals # Normal anion gap metabolic acidosis secondary to renal dysfunction HD initiation as above # Nephrotic-range proteinuria She has nephrotic range proteinuria 7.3 g --> 6.1--> 8.6g, likely secondary to diabetic nephropathy Proeteinuria workup via JHONNY, RPR, HBV, HCV, HIV, SPEP, serum EDWINA, kappa & lambda serum free light chains, & random urine UPEP neg Renal bx on Tuesday as above BP control < 130/80 Atorvastatin Glycemic control # BLE edema resolved HD as above # PAD Was on Plavix, aspirin, and Vasculera, hold for kidney biopsy on Tuesday # Vitamin D deficiency D3 5000 IU po daily # HLD Resume atorvastatin 40 mg by mouth daily at bedtime # DM2 Mngt per primary team Physical Examination - Vital Signs Temperature: 97.8 F Blood Pressure: 171/78 Pulse: 69 Respirations: 18 Pulse Ox (%): 98 - Studies Medications List Reviewed: Yes
[2022-10-30] MEDS: SEVELAMER CARBONATE 800 MG TABLET PO SCH ×2 (14:10→17:18)
[2022-10-30] MEDS: HYDRALAZINE HCL 20 MG/ML VIAL IV PRN ×2 (16:05→23:53)
[2022-10-30] MEDS: AMLODIPINE 10 MG TAB PO SCH (20:41)
[2022-10-30] MEDS: SODIUM BICARB 325 MG TAB PO SCH (20:41)
[2022-10-30] MEDS: HYDRALAZINE HCL 25 MG TABLET PO SCH (20:42)
[2022-10-30] MEDS: ATORVASTATIN 40 MG TAB PO SCH (20:42)
[2022-10-30] MEDS: carvediloL 6.25 MG TAB PO SCH (20:42)
[2022-10-31] MEDS: SEVELAMER CARBONATE 800 MG TABLET PO SCH ×3 (08:21→16:33)
[2022-10-31] MEDS ORDERED: HOME MED 1 EA UNK (Glipizide [Glipizide] 10 MG Tablet) PO SCH (09:00)
[2022-10-31] MEDS: MEDIHONEY 44 ML TOPICAL TUBE TOP SCH (09:00)
[2022-10-31] MEDS: VITAMIN D 1000 UNIT TAB PO SCH (09:30)
[2022-10-31] MEDS: SODIUM BICARB 325 MG TAB PO SCH (09:30)
[2022-10-31] MEDS: CLOPIDOGREL 75 MG TABLET PO SCH (09:30)
[2022-10-31] MEDS: HYDRALAZINE HCL 25 MG TABLET PO SCH ×2 (09:31→21:42)
[2022-10-31] MEDS: carvediloL 6.25 MG TAB PO SCH ×2 (09:31→21:43)
[2022-10-31] MEDS: SOD FERRIC GLUC COMPLX/SUCROSE 125 MG in NA CHLORIDE 0.9% 100 ML IV SCH (11:09)
--- NOTE | 2022-10-31 12:44 | P.PN ---
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 lbs showed GFR of 7, pt had uremic symptoms , admitted to initiate renal replacement therapy Today No overnight events had first treatment yesterday HD tomorrow pending outpatient dialysis chair time arrangement General: Awake, NAD HEENT: AAOx3, NAD , thin Neck: Supple, no elevated JVD , Rt IJ TDC Respiratory: CTAB Cardiovascular: No rubs, No murmurs Gastrointestinal: Soft and benign, Non-distended Musculoskeletal: No clubbing Neurological: Normal tone, Sensation intact Lymphatics: No axilla or inguinal lymphadenopathy EXt; tracw edema A/P # ESRD started on Hd on 10/30 Renal dose medications Renal diet HD tomorrow pending outpatient dialysis chair time arrangement # Htn Cont Current meds low salt diet # Anemia of chronic disease Received pRBC transfusion Cont IV iron and Epogen # HyperPO4 Sevelamer 800 mg by mouth 3 times a day with meals # BLE edema resolved HD as above # PAD will resume ASA and plavix # Vitamin D deficiency D3 5000 IU po daily # HLD Resume atorvastatin 40 mg by mouth daily at bedtime # DM2 Mngt per primary team Physical Examination - Vital Signs Temperature: 97.1 F Blood Pressure: 157/65 Pulse: 64 Respirations: 12 Pulse Ox (%): 99 - Studies Medications List Reviewed: Yes
[2022-10-31] MEDS: HYDRALAZINE HCL 20 MG/ML VIAL IV PRN (16:32)
[2022-10-31] MEDS: AMLODIPINE 10 MG TAB PO SCH (21:43)
[2022-10-31] MEDS: ATORVASTATIN 40 MG TAB PO SCH (21:43)
--- NOTE | 2022-10-31 23:33 | P.PN ---
Date of Service: 10/30/22 Subjective Subjective: Pt is doing well; pt is in good spirits Review of Systems 10-point ROS is otherwise unremarkable Physical Examination - Vital Signs reviewed - Physical Exam General: Alert, In no apparent distress, Oriented x3 Respiratory: Clear to auscultation bilaterally Cardiovascular: Regular rate/rhythm, Normal S1 S2, No murmurs Gastrointestinal: Normal bowel sounds, Soft and benign, Non-distended, No tenderness, No rebound, No guarding Musculoskeletal: No clubbing, No swelling, No tenderness Integumentary: No rashes Neurological: Normal speech, Normal tone, Normal affect Assessment & Plan - Problems (Diagnosis) (1) ESRD (end stage renal disease) Current Visit: Yes Status: Acute (2) Anemia in chronic kidney disease Current Visit: Yes Status: Acute (3) Diabetes Onset Date: 06/27/17 Current Visit: No Status: Chronic Qualifiers: Diabetes mellitus type: type 2 Diabetes mellitus residential insulin use: without intermediate accountant use Diabetes mellitus complication status: with circulatory complication Diabetes mellitus complication detail: with other circulatory complications Qualified Code(s): E11.59 - Type 2 diabetes mellitus with other circulatory complications (4) Hypertensive nephrosclerosis Current Visit: Yes Status: Acute - Plan Continue with plan of care as mentioned below: 1. s/p Tessio catheter placement; start HD today 2. Renal diet 3. Monitor hemodynamics closely 4. Surgery consultation and Nephrology consultation appreciated 5. Strict BP and BS control 6. GI DVT prophylaxis
--- NOTE | 2022-10-31 23:34 | P.PN ---
Date of Service: 10/31/22 Subjective Subjective: No changes; DC after HD in the morning Review of Systems 10-point ROS is otherwise unremarkable Physical Examination - Vital Signs reviewed - Physical Exam General: Alert, In no apparent distress, Oriented x3 Respiratory: Clear to auscultation bilaterally Cardiovascular: Regular rate/rhythm, Normal S1 S2, No murmurs Gastrointestinal: Normal bowel sounds, Soft and benign, Non-distended, No tenderness, No rebound, No guarding Musculoskeletal: No clubbing, No swelling, No tenderness Integumentary: No rashes Neurological: Normal speech, Normal tone, Normal affect Assessment & Plan - Problems (Diagnosis) (1) ESRD (end stage renal disease) Current Visit: Yes Status: Acute (2) Anemia in chronic kidney disease Current Visit: Yes Status: Acute (3) Diabetes Onset Date: 06/27/17 Current Visit: No Status: Chronic Qualifiers: Diabetes mellitus type: type 2 Diabetes mellitus intermediate insulin use: without intermediate use Diabetes mellitus complication status: with circulatory complication Diabetes mellitus complication detail: with other circulatory complications Qualified Code(s): E11.59 - Type 2 diabetes mellitus with other circulatory complications (4) Hypertensive nephrosclerosis Current Visit: Yes Status: Acute - Plan Continue with plan of care as mentioned below: 1. s/p Tessio catheter placement; start HD today 2. Renal diet 3. Monitor hemodynamics closely 4. Surgery consultation and Nephrology consultation appreciated 5. Strict BP and BS control 6. GI DVT prophylaxis
[2022-11-01 01:29] VITALS: O2SAT 98
[2022-11-01] MEDS ORDERED: ASPIRIN EC 81 MG TAB PO SCH (09:00)
[2022-11-01] MEDS: VITAMIN D 1000 UNIT TAB PO SCH (09:37)
[2022-11-01] MEDS: HYDRALAZINE HCL 25 MG TABLET PO SCH (09:38)
[2022-11-01] MEDS: CLOPIDOGREL 75 MG TABLET PO SCH (09:38)
[2022-11-01] MEDS: SEVELAMER CARBONATE 800 MG TABLET PO SCH ×3 (09:38→17:12)
[2022-11-01] MEDS: carvediloL 6.25 MG TAB PO SCH (09:39)
[2022-11-01] MEDS: SOD FERRIC GLUC COMPLX/SUCROSE 125 MG in NA CHLORIDE 0.9% 100 ML IV SCH (09:39)
[2022-11-01] MEDS: MEDIHONEY 44 ML TOPICAL TUBE TOP SCH (10:16)
[2022-11-01 16:23] VITALS: BP 163/73; TEMP 98.4
[2022-11-01] MEDS ORDERED: GLIPIZIDE S.A. 5 MG TAB PO SCH (17:00)
--- NOTE | 2022-11-02 02:02 | PN ---
Date of Progress Note: 11/01/2022 Chief Complaint: End-stage renal disease, new onset. The patient was initiated on dialysis. Subjective: The patient is a 67-year-old woman with history of chronic kidney disease associated wit h proteinuria secondary to diabetes mellitus and hypertension. The patient has history of diabetes m ellitus type 2, peripheral arterial disease, and history of right diabetic foot ulcer. The patient h ad uremic symptoms and was initiated on renal replacement therapy. She is undergoing hemodialysis. She had a catheter placed during this admission. Review of Systems: Denies fever or chills. Physical Examination: Lungs: Diminished breath sounds at the bases. Heart: S1, S2. Abdomen: Soft. Extremities: No edema. Impression And Plan: 1.End-stage renal disease. Continue dialysis 3 times per week. The patient is on renal diet. Cont inue p.o. fluid restriction. Monitor electrolytes. 2.Hypertension. Continue current blood pressure medication. 3.Anemia of chronic disease. The patient received blood transfusion. Continue IV iron and RONNIE. 4.Hyperphosphatemia. The patient was started on Renvela. Continue low phosphorus diet. 5.Peripheral arterial disease. The patient resumed aspirin and Plavix. Follow up with Cardiology. CHEMA/DEREK Voice ID: [id number] Report ID: [id number]
== END 2022-11-01 18:46 | disposition home or self-care (01) | DRG 673 ==
LOC: ER 14:34 → ERHOLD 16:37 → 2ND 17:55
PROVIDERS: ADMIT Hospitalist; ATTEND Hospitalist
PROC: 30233N1 Transfusion of Nonautologous Red Blood Cells into Peripheral Vein, Percutaneous Approach (ICD-10-PCS; 2022-10-28)
PROC: 02HV33Z Insertion of Infusion Device into Superior Vena Cava, Percutaneous Approach (ICD-10-PCS; 2022-10-29)
PROC: 0JH63XZ Insertion of Tunneled Vascular Access Device into Chest Subcutaneous Tissue and Fascia, Percutaneous Approach (ICD-10-PCS; principal; 2022-10-29 14:15)
DX: I12.0 Hypertensive chronic kidney disease with stage 5 chronic kidney disease or end stage renal disease (principal); N18.6 End stage renal disease; E87.20 Acidosis, unspecified; E11.22 Type 2 diabetes mellitus with diabetic chronic kidney disease; E11.51 Type 2 diabetes mellitus with diabetic peripheral angiopathy without gangrene; E11.59 Type 2 diabetes mellitus with other circulatory complications; D63.1 Anemia in chronic kidney disease; E83.39 Other disorders of phosphorus metabolism; E78.00 Pure hypercholesterolemia, unspecified; F17.200 Nicotine dependence, unspecified, uncomplicated; Z99.2 Dependence on renal dialysis; Z79.02 Long term (current) use of antithrombotics/antiplatelets; Z98.51 Tubal ligation status; Z79.84 Long term (current) use of oral hypoglycemic drugs; Z79.899 Other long term (current) drug therapy; Z28.310 Unvaccinated for COVID-19
CPT/HCPCS: 36415; 36430; 71045; 71046; 76000; 80053; 80069; 80074; 82306; 82947; 83540; 83735; 83970; 84466; 85025; 85610; 85730; 86706; 86850; 86900; 86901; 86920; 90935; 99285; A4216; C1752; J0360; J0690; J1644; J2001; J2250; J2916; J3010; J7040; J7050; P9016; Q5105